=== PATIENT | male | born 1945 | race Caucasian/White ===

== ENCOUNTER 2018-10-12 10:03 | Inpatient (IN) | payer OTHER, MEDICARE, SELFPAY ==
[2018-10-12] VITALS (18 sets, daily range): BP systolic 96–133; BP diastolic 63–96; PULSE 84–123; RESP 15–28; TEMP 36.7–37.1; O2SAT 92–99; BMI 19.5
--- NOTE | 2018-10-12 10:50 | CT_ITS ---
STUDY: CT BRAIN WITHOUT CONTRAST REASON FOR EXAM: Male, 73 years old. Dizziness RADIATION DOSAGE (If Supplied By Facility): CTDIvol = ( 44.99 ) mGy, DLP = ( 796.11 ) mGycm TECHNIQUE: Transaxial CT imaging of the brain was performed without administration of intravenous contrast material. Individualized dose optimization techniques were used for this CT. COMPARISON: No relevant priors. FINDINGS: Normal soft tissue structures. Normal calvarium. Normal size ventricles and extra-axial spaces for the patient's age. Chronic small vessel disease There is no intracranial hemorrhage. There are no findings of an acute ischemic infarction. Normal visualized paranasal sinuses. CT/Brain/Head without Contrast IMPRESSION: No acute intracranial hemorrhage, mass effect or acute large territory infarcts. Electronically Signed: Palomo Shook, at 12:28 EDT Tel , Service support ,
--- NOTE | 2018-10-12 10:51 | CT_ITS ---
STUDY: CT CHEST WITHOUT CONTRAST REASON FOR EXAM: Male, 73 years old. Fall and dizziness RADIATION DOSAGE (If Supplied By Facility): CTDIvol = ( 14.44 ) mGy, DLP = ( 451.09 ) mGycm TECHNIQUE: Transaxial imaging was performed without the administration of intravenous contrast material. Individualized dose optimization techniques were used for this CT. COMPARISON: None. FINDINGS: No pneumothorax or pleural effusion. Bilateral emphysematous changes noted with scarring in the lung apices. There is traction bronchiectasis with honeycombing in the lung bases also seen which can be seen in the setting of interstitial fibrosis Coronary vascular calcifications. No pericardial effusion. Postsurgical changes at the GE junction. No evidence for mediastinal adenopathy. Small nodule in the left lower lobe measuring up to 8mm which needs further assessment with follow-up chest CT. Osseous structures demonstrate compression deformities of the T1, T5, T6, T8 and T11 levels of indeterminate age. Small punctate calcification in the right renal parenchyma partially seen CT/Chest without Contrast IMPRESSION: Bilateral emphysematous changes with a superimposed interstitial fibrosis. Left lower lobe nodule which needs further assessment with follow-up chest CT in 3 months Coronary vascular calcifications. Multiple compression fractures of the thoracic vertebrae involving T1, T5, T6, T8 and T11 levels of indeterminate age Electronically Signed: Palomo Shook, at 12:41 EDT Tel , Service support ,
--- NOTE | 2018-10-12 10:51 | EKG12_ITS ---
Test Reason : DYSRHYTHMIA Blood Pressure : / mmHG Vent. Rate : 123 BPM Atrial Rate : 326 BPM P-R Int : 000 ms QRS Dur : 096 ms QT Int : 296 ms P-R-T Axes : 000 -54 076 degrees QTc Int : 423 ms Atrial fibrillation with rapid ventricular response Left anterior fascicular block Possible Lateral infarct , age undetermined Abnormal ECG Confirmed by CARMELINA RODRIGUES, FELISA ([id number]), editor map JESÚS GARCIA ([id number]) on 10/14/2018 1:29:21 PM Referred By: Keri Barclay Confirmed By:FELISA COSME MD
--- NOTE | 2018-10-12 10:51 | CT_ITS ---
STUDY: CT CERVICAL SPINE WITHOUT CONTRAST REASON FOR EXAM: Male, 73 years old. Dizziness and fall RADIATION DOSAGE (If Supplied By Facility): CTDIvol = ( 18.32 ) mGy, DLP = ( 389.94 ) mGycm TECHNIQUE: High resolution transaxial imaging was performed without contrast material. Sagittal and coronal images were reconstructed. Individualized dose optimization techniques were used for this CT. COMPARISON: None FINDINGS: Straightening of normal cervical lordotic curvature. Atlantodental joints degenerative changes with retrodental soft tissue seen. The atlantooccipital joint degenerative changes. Disc space narrowing and C5-C6 level with multilevel neural foraminal narrowing. Mild wedging of the cervical vertebra. The dens appears intact. Occipital condyles are within normal limits. Multilevel facet arthrosis. Apical scarring and emphysematous changes seen which can be assessed with CT examination of the chest Multilevel degenerative disc disease also seen. IMPRESSION: Cervical spondylotic changes with multilevel neural foraminal narrowing. No evidence for acute cervical spine fractures. Electronically Signed: Palomo Shook, at 12:36 EDT Tel , Service support , CT/Spine Cervical without Contras
[2018-10-12] MEDS: Flecainide 150 MG Tablet 75 MG PO (11:17)
[2018-10-12] MEDS: Ondansetron 4 MG/2 ML Vial IV (11:18)
[2018-10-12] MEDS: Morphine 2 MG/ML Syringe IV ×2 (11:18→16:29)
[2018-10-12 11:29] LABS: Absolute Lymphocyte Count 1.45 X10^3/uL (0.83-4.51); Absolute Neutrophil Count 9.8 X10^3/uL (2.0-7.7); Basophil# 0.06 X10^3/uL; Basophil% 0.5 % (0-1); Eosinophil# 0.08 X10^3/uL; Eosinophils% 0.6 % (0-5); Hemoglobin 15.6 g/dL (13.0-16.5); Lymphocyte # 1.45 X10^3/ul (4.0); Lymphocyte % 11.6 % (19-41); Mean Corp Hgb Conc 33.2 g/dL (32-36); Mean Corpuscular Hgb 35.1 pg (27.0-32.0); Mean Corpuscular Volume 105.9 fL (80-94); Mean Platelet Vol. 10.5 fl (6.2-12.0); Monocyte# 1.01 X10^3/uL; Monocyte% 8.1 % (0-10); NRBC Flagged by Analyzer 0 % (0-5); Neutrophil # 9.81 X10^3/uL (2.7-7.7); Neutrophil % 78.4 % (47-70); Platelet Count 259 K/mm3 (150-450); RBC Distribution Width SD 51.6 fl (35.1-43.9); Red Blood Count 4.44 M/mm3 (4.6-6.2); White Blood Count 12.5 K/mm3 (4.4-11.0)
[2018-10-12 11:44] LABS: Anion Gap 5 (5-15); BUN 25 mg/dL (7-18); BUN/Creat Ratio 19.5 RATIO (10-20); Calcium,Total 8.5 mg/dL (8.5-10.1); Chloride 111 mmol/L (98-107); Creatinine, Serum 1.28 mg/dL (0.70-1.30); EST Glomerular Filtration Rate 59 mL/min (>60); Est Glom Filt Rate - Afr Amer 71 mL/min (>60); Estimated Creatinine Clearance 49.44 ml/min; Glucose 83 mg/dL (74-106); Potassium 5.1 mmol/L (3.5-5.1); Sodium Level 142 mmol/L (136-145)
--- NOTE | 2018-10-12 12:00 | RAD_ITS ---
STUDY: X-RAY - RIGHT SHOULDER REASON FOR EXAM: Male, 73 years old. Injury and pain TECHNIQUE: 2 view(s) of the shoulder. COMPARISON: None. FINDINGS: No evidence for shoulder dislocation seen. Degenerative changes of the acromioclavicular joint. High riding humeral head which can be seen in the setting of rotator cuff tear No consolidative process. Chronic interstitial changes in the lung parenchyma. IMPRESSION: Subtle deformity of the femoral head along the posterolateral surface noted with minimal deformity along the inferior glenoid rim possibly a Hill-Sachs deformity or Bankart lesion of indeterminate age Electronically Signed: Palomo Shook, at 12:43 EDT Tel , Service support , RAD/Shoulder min 2 Views
[2018-10-12] MEDS: Metoprolol Tartrate 5 MG/5 ML Vial IV ×2 (13:02→13:20)
[2018-10-12] MEDS: Etomidate 20 MG/10 ML Vial 10 MG IV (14:04)
--- NOTE | 2018-10-12 14:42 | ED.DCSUM_ITS ---
- ER Visit Summary Date of Service: 10/12/18 Chief Complaint: Dizziness History of Present Illness: The patient is a 73 M who states he has a history of A. fib is on Eliquis as well as flecainide. Also has a history of COPD and is a smoker. He is seen [facility]. He tells me that with his A. fib when he goes into it he usually becomes very symptomatic is generally weak feels poorly gets dizzy sometimes fall. Tells me that today he is on his way to the bathroom when his symptoms acutely started fell down. He believes he lost consciousness. He struck the right side of his head. He injured his right shoulder has pain anterior aspect of the shoulder as well as the ribs in the mid axillary line asif r the axilla. He notes a slight headache. There is a concern voiced by family that he does not appropriately take his medications. There is concerned that he is taking more flecainide than what he should. He states he has not missed any doses of his Eliquis for several months. He reports that within the past couple months he has had a change from metoprolol and lisinopril to flecainide. This was done because he was experiencing low blood pressure when he would go into atrial fibrillation. From what it sounds like the hope was that he would be maintained in a sinus rhythm that he is on flecainide but he states this is not been occurring. Physical Examination: Afebrile vital signs show a tachycardia at a rate of 133 Gen: Well-nourished well-developed Head: Normocephalic there is a small 0.5 cm laceration to the left forehead periorbital region. The wound edges are approximated and there is dried blood adhering the edges together. Eyes: Perrl EOMI ENT: TMs clear no rhinorrhea moist mucous membranes Neck: Supple no lymphadenopathy no JVD nontender CVS: Irregularly irregular tachycardic rhythm no murmurs normal S1-S2 Respiratory: No distress clear to auscultation bilaterally chest nontender Abdomen: Soft nontender nondistended normal bowel sounds no masses Back: Nontender Extremity: Patient has painful range of motion of the right shoulder. He is tender of the anterior aspect of the shoulder. There is no obvious dislocation. Neurovascular intact. Skin: Normal color no rash Neuro: alert orientated ?3 CN II-XII intact normal strength sensation Psych: Normal affect normal mood Test Results: White count 12.5. Creatinine 1.28. Troponin negative. EKG shows atrial fibrillation at a rate of 123. Shoulder films showed a probable Hill- Sachs deformity. CT the brain cervical spine the chest showed no acute findings. Emergency Department Course and Treatment: Patient had not taken his flecainide for the day. We gave him his morning dose and gave metoprolol. This is slowed his heart rate down to around 100. He received morphine and Zofran for the pain in his shoulder. I suspect there is a chance that he did dislocate the shoulder but reduced on its own. This would explain why he is so sore and the lesion seen on shoulder films. He will be placed in a sling. Patient continues to feel poorly when standing. We talked about the possibility of a cardioversion. 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 He would like to try to be cardioverted to get back to sinus rhythm so he can go home. Patient provided signed informed consent. He received procedural s edation dose of etomidate. A synchronized 200 J shock was performed which resulted in a brief episode of sinus rhythm that transformed to A. fib with RVR. We attempted a second time with similar results. He was allowed to recover without any adverse events. At this point patient continues to not feel good when he stands and is worried about passing out again. Our plan will be admission. Impression: 1. Paroxysmal atrial fibrillation with RVR 2. Forehead laceration 0.5 cm without repair 2. Right shoulder sprain 3. Procedural sedation 4. Failed cardioversion This note was generated with [employer] dictation software. It may contain incorrect words, spelling, and punctuation that were not noted in review of the chart prior to signing ED Disposition - Plan for ED Patient: [facility] [[facility] Provider] -
--- NOTE | 2018-10-12 16:04 | PCM.HP.STD ---
Problem List (1) GERD (gastroesophageal reflux disease) Status: Chronic (2) PAF (paroxysmal atrial fibrillation) Status: Chronic (3) Chronic back pain Status: Chronic (4) Depression with anxiety Status: Chronic (5) COPD (chronic obstructive pulmonary disease) Status: Chronic (6) Tobacco dependence Status: Chronic History of Present Illness Date of Admission: 10/12/18 Chief Complaint: Dizziness with fall. The patient is a 73 year old M who presents the emergency room due to dizziness resulting in fall at home. Patient has a history of paroxysmal atrial fibrillation and reports he becomes symptomatic with dizziness, shortness of breath when he is in atrial fibrillation. Today after taking a shower he was in the bathroom and reach for the door handle when he fell and hit the right side of his head on an iron and injured his right shoulder as well. He does not believe he lost consciousness. He initially did not want his to call the squad however his right shoulder was hurting him and he was unable to help himself up. Patient follows with the [facility] and [facility]ology at [facility] recently discontinued his metoprolol and lisinopril and switched him to flecainide. He reports his flecainide was recently increased as well. He denies chest pain. Patient reports he has been taking his Eliquis faithfully. Cardioversion was attempted x2 in ER and was not successful. Patient has followed with Dr. Blanton in the past however switched to [facility] due to insurance coverage. He has a past medical history of PAF, GERD, chronic back pain, COPD, anxiety, depression and tobacco dependence. Past Medical History Past Medical History (Chronic Problems): Chronic Problems GERD (gastroesophageal reflux disease) (Chronic) PAF (paroxysmal atrial fibrillation) (Chronic) Chronic back pain (Chronic) Depression with anxiety (Chronic) COPD (chronic obstructive pulmonary disease) (Chronic) Tobacco dependence (Chronic) Allergies varenicline tartrate [From Chantix] Allergy (Verified 10/12/18 10:05) Unknown Home Medications: Ambulatory Orders Medication Instructions Recorded Apixaban [Eliquis] 5 mg PO BID 06/03/15 Cyclobenzaprine HCl 10 mg PO TID PRN PRN 06/03/15 Fluticasone/Vilanterol [Breo 1 each [facility] UD 06/03/15 Ellipta 200-25 Mcg INH] Ipratropium/Albuterol Respimat 1 puff INHALATION 4X/DAY 06/03/15 [Combivent Respimat Inhal [place]] Mometasone Furoate [Nasonex] 2 spray NASAL DAILY 06/03/15 Oxycodone HCl/Acetaminophen 1 tab PO PRN PRN 06/03/15 [Percocet 10-325 mg Tablet] Promethazine HCl/Codeine 5 ml PO UD 06/03/15 [Prometh-Codein 6.25-10 mg/5 ml] Ranitidine [Zantac] 150 mg PO DAILY 06/03/15 buPROPion XL [Wellbutrin Xl] 300 mg PO DAILY 06/03/15 Surgical History: - - Tonsillectomy, vagotomy. Psychiatric History: Anxiety, Depression Lives: Spouse/ Significant Other Smoking Status: Current every day smoker Tobacco Use: Cigarettes - Half pack per day Alcohol: None Drugs: None - *Family History Maternal History Items: Hypertension, - - Polio Paternal History Items: - - Father passed at age 47 due to [facility]. Review of Systems Constitutional: Denies: Chills, Fever, Weight Change HEENT: Denies: Head Aches, Sinus Congestion, Sinus Drainage Cardiovascular: Reports: Light Headedness, - - Pre-syncope. Denies: Chest Pain, Palpitations Respiratory: Reports: Shortness of breath upon exertion. Denies: Cough, Shortness of breath at rest, Sputum production Gastrointestinal: Denies: Abdominal Pain, Nausea, Vomiting Genitourinary: Denies: Dysuria Musculoskeletal: Reports: - - Chronic back pain, acute right shoulder pain. Skin: Reports: - - Right forehead laceration Neurological: Denies: Numbness, Tingling, Focal weakness Psychiatric: Reports: Anxiety, Depression. Denies: Homicidal Ideations, Suicidal Ideations Hematologic/ Lymphatic: Denies: Easy Bruising, Easy Bleeding VTE Information - Inpt Only VTE Present on Admission: No VTE Mechan Device Prophylaxis: None VTE Pharm Prophylaxis ordered?: Yes - Physical Exam General: Alert, Oriented x3, Cooperative HEENT: Atraumatic, PERRLA, EOMI, Normocephalic Neck: Supple, No JVD, Negative Carotid Bruits Lungs: Clear to auscultation, Normal air movement Cardiovascular: - - Atrial fibrillation, tachycardic Abdomen: Bowel Sounds Present, Soft, Non Tender, Non-Distended Extremities: No clubbing, No cyanosis, No edema, Capillary Refill Less than 3 Seconds Skin: - - Right forehead laceration, intact with dried blood present. Musculoskeletal: Tenderness - Right shoulder Neurological: Cranial nerves II-XII grossly intact, Neuro grossly intact Psych/Mental Status: Normal Affect, Appropriate Vital Signs Temp Pulse Resp BP Pulse Ox 98.7 F 96 22 H 112/88 H 92 10/12/18 10:05 10/12/18 15:11 10/12/18 15:11 10/12/18 15:11 10/12/18 15:11 Oxygen Flow Rate (L/min) [1] 2 Oxygen Flow Rate (L/min) [2] 4 Oxygen Flow Rate (L/min) 2 Oxygen Delivery Method [1] Nasal Cannula Oxygen Delivery Method [2] Nasal Cannula Oxygen Delivery Method Room Air Weight: 147 lb 11.355 oz Body Mass Index (BMI) 19.5 Laboratory Tests Past 24 Hrs 10/12/18 10/12/18 11:20 11:20 WBC 12.5 H RBC 4.44 L Hgb 15.6 Hct 47.0 MCV 105.9 H MCH 35.1 H MCHC 33.2 RDW Std Deviation 51.6 H RDW Coeff of Elizabeth 13.0 Plt Count 259 MPV 10.5 Immature Gran % (Auto) 0.800 Neut % (Auto) 78.4 H Lymph % (Auto) 11.6 L [place] % (Auto) 8.1 Eos % (Auto) 0.6 Baso % (Auto) 0.5 Absolute Neuts (auto) 9.8 H Absolute Lymphs (auto) 1.45 Nucleated RBC % 0 Sodium 142 Potassium 5.1 Chloride 111 H Carbon Dioxide 26.0 Anion Gap 5 BUN 25 H Creatinine 1.28 Estim Creat Clear Calc 49.44 Est GFR (MDRD) Af Amer 71 Est GFR (MDRD) Non-Af 59 L BUN/Creatinine Ratio 19.5 Glucose 83 Calcium 8.5 Troponin I < 0.015 Assessment/Plan 1. Atrial fibrillation with RVR, history of paroxysmal atrial fibrillation-failed cardioversion x2. Continue home Eliquis regimen. Patient reports his flecainide regimen was recently increased. He was prior on lisinopril and metoprolol however discontinued given low blood pressure. Consult cardiology in a.m. Patient has seen Dr. Blanton in the past. PRN IV metoprolol. 2. Presyncope with fall secondary to #1-resulting in right shoulder sprain and right forehead laceration. Laceration intact and did not require suturing. Right arm sling, apply ice. PRN pain regimen and outpatient follow-up with Ortho. 3. Chronic COPD- no acute exacerbation. Scheduled DuoNeb. 4. GERD-continue Zantac regimen. 5. Anxiety/depression-continue home Wellbutrin regimen. 6. Chronic back pain-outpatient follow-up with Ortho. Patient states his pain has worsened recently. Continue PRN pain regimen. PT/OT. 7. Tobacco dependence- encouraged cessation. DVT prophylaxis-Eliquaisha This patient was seen by VALE Mckay under the supervision of Dr. Lsia.
--- NOTE | 2018-10-12 16:22 | ECHOCS_ITS ---
Reason For Study: AFIB Procedure This was a 2D Doppler, Color Flow transthoracic echocardiogram. The study was technically difficult. Contrast injection was performed. Pt has fractured arm and vertebrae- was positioned supine for exam. Exam performed portable in patient room. Left Ventricle Normal LV size. The estimated ejection fraction is 45 %. Mild global left ventricular systolic dysfunction. There is mild global hypokinesis of the left ventricle. Right Ventricle Normal RV size. Normal systolic function. Atria Normal left atrium. Normal right atrium. Mitral Valve Normal mitral valve. Tricuspid Valve Normal tricuspid valve. Aortic Valve The aortic valve is not well visualized. Pulmonic Valve Normal pulmonic valve. Great Vessels Normal aortic root. The pulmonary artery is normal size. Normal inferior vena cava. Pericardium/Pleural No pericardial effusion. Medication Diluted definity 6ml given slow IV push to enhance endocardial definition. MMode/2D Measurements & Calculations LVIDd: 4.9 cm IVSd: 0.69 cm Ao root diam: 3.4 cm LVIDs: 4.0 cm LVPWd: 0.72 cm FS: 18.5 % LAV(MOD-bp): 24.3 ml LA A4 area: 11.7 cm2 LA dimension(2D): 3.8 cm LAV(MOD-bp) Indexed: 12.9 ml/m2 LAV(MOD-sp2): 24.0 ml LAV(MOD-sp4): 22.5 ml RA A4 area: 13.1 cm2 Doppler Measurements & Calculations Ao V2 max: 63.7 cm/sec LV V1 max: 56.2 cm/sec PA V2 max: 53.7 cm/sec Ao max P.6 mmHg LV V1 max P.3 mmHg TR max dora: 192.6 cm/sec TR max P.8 mmHg Interpretation Summary Normal LV size. The estimated ejection fraction is 45 %. Mild global left ventricular systolic dysfunction. Contrast injection was performed. Compared to prior study, there is no significant change. Ordering Physician: Keri Barclay Referring Physician: MARKO BAJWA Performed By: Isatu Alvarez, CHRISTIANO, RVT
[2018-10-12 17:22] LABS: Magnesium 2.4 mg/dL (1.6-2.6); Thyroid Stim Hormone (TSH) 1.86 uIU/mL (0.358-3.74)
[2018-10-12] MEDS: oxyCODONE 5 MG Tablet PO (21:35)
[2018-10-12] MEDS: APIXABAN 5 MG TABLET PO (21:36)
[2018-10-12] MEDS: Flecainide 100 MG Tablet 50 MG PO (21:36)
[2018-10-13] VITALS (15 sets, daily range): BP systolic 80–123; BP diastolic 53–71; PULSE 72–96; RESP 12–18; TEMP 36.6–36.9; O2SAT 94–99
[2018-10-13] MEDS: Morphine 2 MG/ML Syringe IV (01:22)
[2018-10-13] MEDS: Acetaminophen 325 MG Tablet 650 MG PO (01:28)
[2018-10-13] MEDS: oxyCODONE 5 MG Tablet PO ×2 (04:15→08:29)
[2018-10-13] MEDS: Budesonide Respules 0.5 MG/2 ML AMPUL.NEB. INHALATION (06:49)
--- NOTE | 2018-10-13 07:30 | CON.PCM_ITS ---
Reason for Consult Date of Consultation: 10/13/18 Reason for Consultation: Atrial fibrillation History of Present Illness: The patient is a 73 year old M with a known history of A. fib is on Eliquis as well as flecainide. Also has a history of COPD and is a smoker. [facility] He tells me that with his A. fib when he goes into it he usually becomes very symptomatic is generally weak feels poorly gets dizzy sometimes fall. He says that yesterday he was on his way to the bathroom when his symptoms acutely started fell down. He believes he lost consciousness. He struck the right side of his head. He injured his right shoulder has pain anterior aspect of the shoulder as well as the ribs in the mid axillary line near the axilla. He notes a slight headache. There is a concern voiced by family that he does not appropriately take his medications. There is concerned that he is taking more flecainide than what he should. He states he has not missed any doses of his Eliquis for several months. He reports that within the past couple months he has had a change from metoprolol and lisinopril to flecainide. This was done because he was experiencing low blood pressure when he would go into atrial fibrillation. He was seen in the emergency room he was noted to be in atrial for ablation with rapid ventricular response rate he was given metoprolol and flecainide and had 2 attempts at DC cardioversion which were unsuccessful. He was admitted to the telemetry care unit. Past medical history is significant for coronary artery disease status post cardiac catheterization in 2016 which demonstrated an LAD with 60 to 70% stenosis, and nondominant left circumflex artery with 80% stenosis, right coronary artery with mild diffuse disease. He subsequently underwent stress testing after that to determine the significance of the lesions and at 7 metabolic equivalents there was no evidence of ischemia. He was not seen in follow-up by me but was being followed in the [facility] system. At this particular time he appears to be free of symptoms. He is denied any chest pain or paroxysmal nocturnal dyspnea or pedal edema. Past Medical History Allergies/Adverse Reactions: Allergies varenicline tartrate [From Chantix] Allergy (Verified 10/12/18 10:05) Unknown Home Medications: Ambulatory Orders Medication Instructions Recorded Apixaban [Eliquis] 5 mg PO BID 06/03/15 Cyclobenzaprine HCl 10 mg PO TID PRN PRN 06/03/15 Ipratropium/Albuterol Respimat 1 puff INHALATION 4X/DAY 06/03/15 [Combivent Respimat Inhal [place]] Ranitidine [Zantac] 150 mg PO DAILY 06/03/15 buPROPion XL [Wellbutrin Xl] 300 mg PO DAILY 06/03/15 Acetaminophen [Non-Aspirin Pain 1,000 mg PO Q6H PRN PRN 10/12/18 Relief] Flecainide [Tambocor] 75 mg PO BID 10/12/18 Fluticasone 0.05% [Flonase Nasal 2 spray NASAL DAILY 10/12/18 [place]] Past Medical History (Chronic Problems): Chronic Problems GERD (gastroesophageal reflux disease) (Chronic) PAF (paroxysmal atrial fibrillation) (Chronic) Chronic back pain (Chronic) Depression with anxiety (Chronic) COPD (chronic obstructive pulmonary disease) (Chronic) Tobacco dependence (Chronic) Surgical History: - - Tonsillectomy, vagotomy. Psychiatric History: Anxiety, Depression - *Family History Maternal History Items: Hypertension, - - Polio Paternal History Items: - - Father passed at age 47 due to [place]. Lives: Spouse/ Significant Other Smoking Status: Current every day smoker Tobacco Use: Cigarettes Alcohol: None Drugs: None Review of Systems - Review of Systems General: Denies: Fever, Night Sweats, Fatigue HEENT: Denies: Vision Change Cardiovascular: Reports: Palpitations, Syncope. Denies: Chest Discomfort, Shortness of Breath, Orthopnea, PND, Peripheral Edema, Lightheadedness, Dizziness, Near Syncope Respiratory: Denies: Cough, Sputum Production, Hemoptysis Gastrointestinal: Denies: Hematemesis, Hematochezia, Melena Genitourinary: Denies: Dysuria, Hematuria Muscoloskeletal: Denies: Myalgias Skin: Denies: Rash Neurological: Reports: Dizziness Psychiatric: Denies: Anxiety Endocrine: Denies: Unexplained Weight Loss Subjectve: Pleasant gentleman in no apparent distress at this time Objective: Vital Signs Temp Pulse Resp BP Pulse Ox 98.1 F 91 18 123/71 H 95 10/13/18 04:15 10/13/18 04:15 10/13/18 04:15 10/13/18 04:15 10/13/18 04:15 Oxygen Flow Rate (L/min) [1] 2 Oxygen Flow Rate (L/min) [2] 4 Oxygen Flow Rate (L/min) 2 Oxygen Delivery Method [1] Nasal Cannula Oxygen Delivery Method [2] Nasal Cannula Oxygen Delivery Method Nasal Cannula Weight: 147 lb 11.355 oz Body Mass Index (BMI) 19.5 Intake and Output for Last 24 Hours 10/11/18 10/12/18 10/13/18 23:59 23:59 23:59 Intake Total 717 / 717 Output Total 450 / 450 Balance 267 / 267 General: Awake, Alert, Oriented x 3 HEENT: PERRL, EOMI, Sclera Non Icteric Neck: Supple, Good ROM, No Lymph Node Enlargement Lungs: Clear to auscultation Cardiovascular: Irregular Rhythm, Normal S1, Normal S2, No Murmurs, No Rubs, No Gallops Vascular: No Carotid Bruits, Normal Femoral Pulses, Normal Radial Pulses, Normal Dorsalis Pedal Pulse, Normal Posterior Tibial Pulses Abdomen: Bowel Sounds Present, Soft, Non Tender, No HSM, No Organomegaly Extremities: No Cyanosis, No Clubbing, No edema Musculoskeletal: No Erythema Skin: No Rashes Neurological: No Focal Motor or Sensory Deficit Psych/Mental Status: Appropriate 10/12/18 11:20: WBC 12.5 H, RBC 4.44 L, Hgb 15.6, Hct 47.0, MCV 105.9 H, MCH 35.1 H, MCHC 33.2, Plt Count 259, MPV 10.5, Immature Gran % (Auto) 0.800, Neut % (Auto) 78.4 H, Lymph % (Auto) 11.6 L, [place] % (Auto) 8.1, Eos % (Auto) 0.6, Baso % (Auto) 0.5, Absolute Neuts (auto) 9.8 H, Nucleated RBC % 0 10/12/18 11:20: Sodium 142, Potassium 5.1, Chloride 111 H, Carbon Dioxide 26.0, Anion Gap 5, BUN 25 H, Creatinine 1.28, Est GFR (MDRD) Af Amer 71, Est GFR (MDRD) Non-Af 59 L, BUN/Creatinine Ratio 19.5, Glucose 83, Calcium 8.5, Troponin I < 0.015 10/12/18 11:20: Magnesium 2.4 10/12/18 17:55: Troponin I < 0.015 10/12/18 20:39: Troponin I < 0.015 Rhythm: EKG: Atrial fibrillation with rapid ventricular response rate rate of 123 bpm Assessment/Plan 1. Atrial fibrillation with rapid ventricular response rate * Patient presented with atrial for ablation with rapid ventricular response rate and a syncopal episode. He had been on flecainide prescribed by the [facility]. He does have coronary artery disease and thus this medication is contraindicated. I would recommend that we discontinue the above and continue him on the anticoagulation. * Resume metoprolol 50 mg twice a day * Consider starting amiodarone 200 mg twice a day * Echocardiogram to assess his left ventricular function * At this time I would not recommend any DC cardioversion. * 2. Coronary artery disease * Does have previous known coronary artery disease but at this time is asymptomatic with regard to chest pain * We will continue to observe his cardiac enzymes which have been negative thus far. * We may consider outpatient stress testing. * 3. Hypertension * Blood pressure appears to be under good control at this particular time. No major changes will be made. * * Will also continue with risk factor modification. * 4. Syncope * Etiology unclear but may have been secondary to the atrial for ablation with rapid ventricular response rate of a pause suggesting a tachybradycardia syndrome. We will continue to observe his rhythm under telemetry monitoring. He may need outpatient Holter monitoring or event monitoring. * * Thank you for allowing me to participate in the care of your patient. Please don't hesitate to call if any issues arise
[2018-10-13] MEDS: Amiodarone 200 MG Tablet PO ×2 (08:30→21:02)
[2018-10-13] MEDS: APIXABAN 5 MG TABLET PO ×2 (08:30→21:02)
[2018-10-13] MEDS: buPROPion (XL) 300 MG TABLET.XL PO (08:30)
[2018-10-13] MEDS: Famotidine 20 MG Tablet PO (08:30)
--- NOTE | 2018-10-13 09:30 | CASEMGMT ---
[facility] Per Ryan PHILLIPS[facility] not have [facility] available at that time. This RN CM [facility] once [facility] received and assigned. Vik BERRY CM
[2018-10-13] MEDS: Metoprolol Tartrate 50 MG Tablet PO ×2 (09:47→21:02)
--- NOTE | 2018-10-13 10:22 | PN_ITS ---
<Keri Barclay - Last Filed: 10/13/18 10:38> Patient Problems: Active and Suspected Problems Atrial fibrillation with RVR (Acute) Subjective: Patient seen and examined. Complains of severe right shoulder pain. Denies further dizziness, lightheadedness or presyncope. - Physical Exam General: Alert, Oriented x3, Cooperative HEENT: Atraumatic, PERRLA, EOMI, Normocephalic Neck: Supple, No JVD, Negative Carotid Bruits Lungs: Clear to auscultation, Normal air movement Cardiovascular: - - Atrial fibrillation, rate controlled Abdomen: Bowel Sounds Present, Soft, Non Tender Extremities: No clubbing, No cyanosis, No edema, Capillary Refill Less than 3 Seconds Skin: No rashes, No breakdown, - - Right forehead laceration Musculoskeletal: Tenderness - Right shoulder Neurological: Cranial nerves II-XII grossly intact, Neuro grossly intact Psych/Mental Status: Normal Affect, Appropriate Vital Signs Temp Pulse Resp BP Pulse Ox 97.9 F 89 16 93/58 L 95 10/13/18 09:35 10/13/18 09:47 10/13/18 09:35 10/13/18 09:35 10/13/18 09:35 Oxygen Flow Rate (L/min) [1] 2 Oxygen Flow Rate (L/min) [2] 4 Oxygen Flow Rate (L/min) 2 Oxygen Delivery Method [1] Nasal Cannula Oxygen Delivery Method [2] Nasal Cannula Oxygen Delivery Method Nasal Cannula Weight: 147 lb 11.355 oz Body Mass Index (BMI) 19.5 Intake and Output for Last 24 Hours 10/11/18 10/12/18 10/13/18 23:59 23:59 23:59 Intake Total 717 / 717 Output Total 450 / 450 Balance 267 / 267 Laboratory Tests Past 24 Hrs 10/12/18 10/12/18 10/12/18 11:20 11:20 11:20 WBC 12.5 H RBC 4.44 L Hgb 15.6 Hct 47.0 MCV 105.9 H MCH 35.1 H MCHC 33.2 RDW Std Deviation 51.6 H RDW Coeff of Elizabeth 13.0 Plt Count 259 MPV 10.5 Immature Gran % (Auto) 0.800 Neut % (Auto) 78.4 H Lymph % (Auto) 11.6 L [place] % (Auto) 8.1 Eos % (Auto) 0.6 Baso % (Auto) 0.5 Absolute Neuts (auto) 9.8 H Absolute Lymphs (auto) 1.45 Nucleated RBC % 0 Sodium 142 Potassium 5.1 Chloride 111 H Carbon Dioxide 26.0 Anion Gap 5 BUN 25 H Creatinine 1.28 Estim Creat Clear Calc 49.44 Est GFR (MDRD) Af Amer 71 Est GFR (MDRD) Non-Af 59 L BUN/Creatinine Ratio 19.5 Glucose 83 Calcium 8.5 Magnesium 2.4 Troponin I < 0.015 TSH 1.86 10/12/18 10/12/18 17:55 20:39 WBC RBC Hgb Hct MCV MCH MCHC RDW Std Deviation RDW Coeff of Elizabeth Plt Count MPV Immature Gran % (Auto) Neut % (Auto) Lymph % (Auto) [place] % (Auto) Eos % (Auto) Baso % (Auto) Absolute Neuts (auto) Absolute Lymphs (auto) Nucleated RBC % Sodium Potassium Chloride Carbon Dioxide Anion Gap BUN Creatinine Estim Creat Clear Calc Est GFR (MDRD) Af Amer Est GFR (MDRD) Non-Af BUN/Creatinine Ratio Glucose Calcium Magnesium Troponin I < 0.015 < 0.015 TSH Medical Necessity - Tobacco Use Smoking Status: Current every day smoker Tobacco Use: Cigarettes Assessment/Plan All Active Problems Atrial fibrillation with RVR (Acute) 1. Atrial fibrillation with RVR, history of paroxysmal atrial fibrillation- failed cardioversion x2. Continue home Eliquis regimen. Patient reports his flecainide regimen was recently increased. He was prior on lisinopril and metoprolol however discontinued given low blood pressure. Dr. Blanton consulted. Flecainide discontinued. Initiated on amiodarone 200 mg twice daily and metoprolol 50 mg twice daily. Continue to monitor given history of low blood pressure on metoprolol regimen. Echocardiogram pending. 2. Presyncope with fall secondary to #1-resulting in right shoulder sprain and right forehead laceration. Laceration intact and did not require suturing. Right arm sling, apply ice. PRN pain regimen and outpatient follow-up with Ortho. Added scheduled Tylenol 1000 mg every 8 hours. IV Toradol every 8hr x3 doses. 3. Chronic COPD- no acute exacerbation. Scheduled DuoNeb. 4. GERD-continue Zantac regimen. 5. Anxiety/depression-continue home Wellbutrin regimen. 6. Chronic back pain-outpatient follow-up with Ortho. Patient states his pain has worsened recently. Continue PRN pain regimen. PT/OT. CT of chest with multiple compression fractures of indeterminate age. Check vitamin D, 25- hydroxy. 7. Tobacco dependence- encouraged cessation. DVT prophylaxis-Eliquis This patient was seen by VALE Mckay under the supervision of Dr. Hays. <Tyler Hays - Last Filed: 10/13/18 14:48> - Physical Exam General: Alert, Cooperative HEENT: Atraumatic, Normocephalic Oral: Moist Mucosa, No Gingival or Mucosal Lesions/ Ulcerations Neck: No Nodes, Thyroid Normal Size and Texture Lungs: Clear to auscultation, Normal air movement, No rhonchi, No wheeze Cardiovascular: Regular rate, Regular Rhythm, Normal S1, Normal S2, - Abdomen: Bowel Sounds Present, Soft, Non Tender, Non-Distended Extremities: No edema, No Calf Tenderness Skin: No rashes, No breakdown Musculoskeletal: Tenderness - Right shoulder. Range of passive motion but unable to AB duct his right arm. No glenohumeral joint effusion. Psych/Mental Status: Normal Affect, Appropriate Vital Signs Temp Pulse Resp BP Pulse Ox 36.6 C 89 12 96/69 96 10/13/18 13:41 10/13/18 13:41 10/13/18 13:41 10/13/18 13:41 10/13/18 13:41 Oxygen Flow Rate (L/min) [1] 2 Oxygen Flow Rate (L/min) [2] 4 Oxygen Flow Rate (L/min) 2 Oxygen Delivery Method [1] Nasal Cannula Oxygen Delivery Method [2] Nasal Cannula Oxygen Delivery Method Nasal Cannula Weight: 67 kg Body Mass Index (BMI) 19.5 Intake and Output for Last 24 Hours 10/11/18 10/12/18 10/13/18 23:59 23:59 23:59 Intake Total 957 / 957 Output Total 450 / 450 Balance 507 / 507 Laboratory Tests Past 24 Hrs 10/12/18 10/12/18 10/12/18 11:20 17:55 20:39 Magnesium 2.4 Troponin I < 0.015 < 0.015 Vitamin D 25-Hydroxy TSH 1.86 10/13/18 11:12 Magnesium Troponin I Vitamin D 25-Hydroxy 9.7 L TSH Assessment/Plan Patient seen and examined independently. Data reviewed. I agree with the above note by the nurse practitioner. 1. Atrial fibrillation with RVR * Improved at this time. * Flecainide discontinued and currently on amiodarone and metoprolol. * Follow-up echocardiogram * Cardiology input appreciated * Continue apixaban 2. Near syncope * Supportive management 3. Right shoulder pain * Likely due to strain from his fall. No obvious dislocation at this time * Follow-up with orthopedics as outpatient * I suspect probably at least partial rotator cuff tear 4. Vitamin D deficiency * 25 hydroxy vitamin D level very low at 9.7. We will initiate ergocalciferol 50,000 units. Patient continue with ergocalciferol weekly for 8 doses and then cholecalciferol 2000 units daily thereafter. In approximate 3 months, check a 25-hydroxy vitamin D level with a goal level being around 50. 5. Vertebral compression fractures * Patient has 5, just within his thoracic vertebrae, at T1, T5, T6, T8 and T11. Patient has pain but no radicular signs. Would not pursue any additional evaluation unless his symptoms become worse or signs that may warrant kyphoplasty. * I suspect that these are new as patient states that he has not had any recent falls though unable to be determined at this time. Greater than 35 minutes of which greater than 50% of the time was counseling patient about vertebral compression fractures and his age fibrillation. Code Visit Inpatient E&M: 58871 Subs Hosp L3
--- NOTE | 2018-10-13 10:55 | CASEMGMT ---
Addendum entered by Scotty Grant 10/13/18 13:06: Declination for Transfer to [place] form faxed to [facility], transfer center. Maria Elena DENNIS Original Note: RN CM Assessment Presentation: Atrial fibrillation with RVR. Presyncope with fall, suspected R shoulder dislocatio. R arm in sling. Intro role of CM and purpose of RN CM assessment. Pt is awake, alert and able to participate in assessment. Demographics, PCP and Pharmacy verified. Pt states he plans to return home and his is able to assist him. Pt states over past year they have not gone out much or done much because of his passing out. PCP: Dr. Turner Cummings, [facility]; Dr. Pappas, [address] @ [facility]. Pt has appointment next Saturday Specialists: Dr. Blanton Preferred Pharmacy: [facility] Insurance: [facility] Medicare; [place] benefits. Pt does not wish to transfer to [place]. Declination for Transfer to [place] signed by pt and he understands [facility] will be billed for hospital stay. Prescription Benefit: yes. Pt states he gets most prescriptions through [place]. LNOK: Diana Wu, Living Arrangements: Lives independently in two story home. 1/2 bath on main floor, full bath on second floor with bedrooms. Pt states he is able to navigate stairs, but with more difficulty than past. is able to assist with care needs. Transportation: pt drives, and also can assist with driving. DME: cane. Pt states he did not use DME prior HHC: none. Pt declining Home Health at this time. States his can assist. Patient DC goals: Home with DC PLAN: Anticipate Home with family support. Maria Elena DENNIS
[2018-10-13 11:59] LABS: Vitamin D,25 Hydroxy 9.7 ng/mL (29.95-100.01)
[2018-10-13] MEDS: 0.9% NaCl Peripheral Flush Adult/Peds IV ×2 (13:37→21:01)
[2018-10-13] MEDS: Ketorolac 15 MG/ML Vial IV ×2 (13:37→21:03)
[2018-10-13] MEDS: Acetaminophen 500 MG Tablet 1000 MG PO ×2 (13:38→21:02)
[2018-10-14] VITALS (9 sets, daily range): BP systolic 91–107; BP diastolic 52–70; PULSE 66–89; RESP 14–16; TEMP 36.3–36.4; O2SAT 82–97
[2018-10-14] MEDS: Acetaminophen 500 MG Tablet 1000 MG PO ×2 (05:47→13:14)
[2018-10-14] MEDS: Ketorolac 15 MG/ML Vial IV (05:48)
[2018-10-14] MEDS: 0.9% NaCl Peripheral Flush Adult/Peds IV (05:48)
[2018-10-14] MEDS: Budesonide Respules 0.5 MG/2 ML AMPUL.NEB. INHALATION (07:19)
--- NOTE | 2018-10-14 07:43 | PN.CARD_ITS ---
Subjectve: Patient seen and evaluated. Appears to be doing quite well. Denies any chest pain or palpitations. Objective: Vital Signs Temp Pulse Resp BP Pulse Ox 97.4 F L 71 16 91/52 L 97 10/14/18 02:25 10/14/18 07:00 10/14/18 02:25 10/14/18 02:25 10/14/18 02:25 Oxygen Flow Rate (L/min) [1] 2 Oxygen Flow Rate (L/min) [2] 4 Oxygen Flow Rate (L/min) 2 Oxygen Delivery Method [1] Nasal Cannula Oxygen Delivery Method [2] Nasal Cannula Oxygen Delivery Method Nasal Cannula Weight: 147 lb 11.355 oz Body Mass Index (BMI) 19.5 Intake and Output for Last 24 Hours 10/12/18 10/13/18 10/14/18 23:59 23:59 23:59 Intake Total 1317 / 1317 120 / 120 Output Total 450 / 450 Balance 867 / 867 120 / 120 General: Awake, Alert, Oriented x 3 HEENT: PERRL, EOMI, Sclera Non Icteric Neck: Supple, Good ROM, No Lymph Node Enlargement Lungs: Clear to auscultation Cardiovascular: Irregular Rhythm, Normal S1, Normal S2, No Murmurs, No Rubs, No Gallops Vascular: No Carotid Bruits, Normal Femoral Pulses, Normal Radial Pulses, Normal Dorsalis Pedal Pulse, Normal Posterior Tibial Pulses Abdomen: Bowel Sounds Present, Soft, Non Tender, No HSM, No Organomegaly Extremities: No Cyanosis, No Clubbing, No edema Musculoskeletal: No Erythema Skin: No Rashes Lymphatic: No Lymph Node Enlargement Neurological: No Focal Motor or Sensory Deficit Psych/Mental Status: Appropriate Rhythm: EKG: ECHO: Stress Test: Cardiac Cath: PCI: CT Surgery: Holter monitor: EPS: PPM: CXR: Chest CT Scan: Medical Necessity - Tobacco Use Smoking Status: Current every day smoker Tobacco Use: Cigarettes Assessment/Plan 1. Atrial fibrillation with rapid ventricular response rate * Patient presented with atrial for ablation with rapid ventricular response rate and a syncopal episode. He had been on flecainide prescribed by the [facility]. He does have coronary artery disease and thus this medication is contraindicated. * Flecainide has been discontinued and metoprolol started and will reduce the dose to 25 mg twice a day * Consider starting amiodarone 200 mg twice a day * Echocardiogram to assess his left ventricular function demonstrated mild global left ventricular systolic dysfunction estimated EF of 45%. 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 * At this time I would not recommend any DC cardioversion. * 2. Coronary artery disease * Does have previous known coronary artery disease but at this time is asymptomatic with regard to chest pain * We will continue to observe his cardiac enzymes which have been negative thus far. * We may consider outpatient stress testing. * 3. Hypertension * Blood pressure appears to be under good control at this particular time. No major changes will be made. * Metoprolol 25 mg twice a day * Will also continue with risk factor modification. * 4. Syncope * Etiology unclear but may have been secondary to the atrial for ablation with rapid ventricular response rate of a pause suggesting a tachybradycardia syndrome. He may need outpatient 48-hour Holter monitoring sylvia to read. * He can be discharged later today. * Thank you for allowing me to participate in the care of your patient. Please don't hesitate to call if any issues arise
[2018-10-14] MEDS: Amiodarone 200 MG Tablet PO (08:19)
[2018-10-14] MEDS: oxyCODONE 5 MG Tablet PO (08:19)
[2018-10-14] MEDS: APIXABAN 5 MG TABLET PO (08:20)
[2018-10-14] MEDS: Famotidine 20 MG Tablet PO (08:20)
[2018-10-14] MEDS: buPROPion (XL) 300 MG TABLET.XL PO (08:20)
[2018-10-14] MEDS: Metoprolol Tartrate 25 MG Tablet PO (08:37)
--- NOTE | 2018-10-14 11:34 | DCINST_ITS ---
- Discharge Diagnoses Current Active Problems: Current Active and Chronic Problems Atrial fibrillation with RVR (Acute) GERD (gastroesophageal reflux disease) (Chronic) PAF (paroxysmal atrial fibrillation) (Chronic) Chronic back pain (Chronic) Depression with anxiety (Chronic) COPD (chronic obstructive pulmonary disease) (Chronic) Tobacco dependence (Chronic) You will use the following diet at home:: Cardiac Discharge Activity: Return to Normal Activity Call your doctor if you observe: Shortness of breath, Dizziness, Fainting spells, Chest pain Additional Instructions: Continue supplement oxygen to maintain O2 at or above 90%. Recommend checking blood pressure twice daily at home, morning and night and documenting findings to report to cardiology follow-up in 1 to 2 weeks. Your vitamin D level was very low and you were started on vitamin D supplementation which you will take weekly for 7 more weeks. In 3 months recommend repeat vitamin D level with primary care physician. Allergies/Adverse Reactions: Allergies varenicline tartrate [From Chantix] Allergy (Verified 10/12/18 10:05) Unknown Medications to take at Discharge Apixaban [Eliquis] 5 mg PO BID 06/03/15 Cyclobenzaprine HCl 10 mg PO TID PRN PRN 06/03/15 Ipratropium/Albuterol Respimat [Combivent Respimat Inhal [place]] 1 puff INHALATION 4X/DAY 06/03/15 Ranitidine [Zantac] 150 mg PO DAILY 06/03/15 buPROPion XL [Wellbutrin Xl] 300 mg PO DAILY 06/03/15 Fluticasone 0.05% [Flonase Nasal [place]] 2 spray NASAL DAILY 10/12/18 Acetaminophen [Tylenol] 1,000 mg PO Q8 tab 10/14/18 Amiodarone HCl [Cordarone] 200 mg PO BID #60 tab 10/14/18 Ergocalciferol [Vitamin D] 50,000 unit PO Q7D #7 cap 10/14/18 Metoprolol Tartrate [Lopressor (beta zeferino)] 25 mg PO BID #60 tab 10/14/18 Oxycodone [Oxyir] 5 mg PO Q6H PRN PRN 3 Days #18 tablet 10/14/18 The following prescriptions were given: Amiodarone HCl [Cordarone] 200 mg PO BID #60 tab Transmission Status: Received by [facility] Metoprolol Tartrate [Lopressor (beta zeferino)] 25 mg PO BID #60 tab Transmission Status: Received by [facility] Oxycodone [Oxyir] 5 mg PO Q6H PRN PRN 3 Days #18 tablet PRN Reason: Pain Transmission Status: Sent to [facility] Ergocalciferol [Vitamin D] 50,000 unit PO Q7D #7 cap Transmission Status: Received by [facility] Primary Care Physician: [facility] [Primary Care Provider] - Please follow up with your Primary Care Physician in: 1 Week Test Results: Test results from this visit will be discussed in further detail at your follow- up appointment, if applicable. Please Follow Up With: Meño Blanton MD When: 1-2 Weeks, May see MANAGER PHOTO/PA Please Follow Up With: [facility] When: 3-5 days Proposed Discharge Date: 10/14/18
--- NOTE | 2018-10-14 11:45 | CASEMGMT ---
Therapy is recommending further skilled therapy for pt at this time. This RN CM to room and therapy recommendations given to pt at this time. This RN CM explained SNF, HHC and OP at this time and pt declines all at this time. Pt states that his takes care of him and he has no need for any further therapy at this time. Pt does qualify for home oxygen at this time and [facility] as he states he is ready to go home today. [facility] is [facility] preferred provider for home oxygen at this time and pt states he would like to use them at this time. Pt states that he may eventually(if oxygen still needed) have the [facility] take over the home oxygen at some point as he sees pulmonology at the [facility]. Pt states was recently tested for home oxygen at the [facility] and did not qualify at that time. Referral faxed to [facility] with order for mini portable tanks d/t pt's right arm injury along with facesheet, copy of insurance card and face to face at this time. [facility] is aware that pt is up for discharge today, voices understanding. [place] RN KAMILLA
--- NOTE | 2018-10-14 11:47 | DS.PCM_ITS ---
<Keri Barclay - Last Filed: 10/14/18 12:24> Discharge Date and Diagnosis - Problem List Patient Problems: Active and Suspected Problems Atrial fibrillation with RVR (Acute) Date of Admission: 10/12/18 Date of Discharge: 10/14/18 - Primary Discharge Diagnosis Active and Suspected Problems 1. Atrial fibrillation with RVR, history of paroxysmal atrial fibrillation 2. Presyncope with fall secondary to #1 3. Chronic COPD 4. GERD 5. Anxiety/depression 6. Chronic back pain, multiple vertebral compression fractures 7. Tobacco dependence 8. Vitamin D deficiency 9. Right shoulder pain secondary to strain from fall as a result of #2 - Secondary Discharge Diagnosis Chronic Problems GERD (gastroesophageal reflux disease) (Chronic) PAF (paroxysmal atrial fibrillation) (Chronic) Chronic back pain (Chronic) Depression with anxiety (Chronic) COPD (chronic obstructive pulmonary disease) (Chronic) Tobacco dependence (Chronic) Hospital Course and Treatment Imaging Results: Diagnostic Data Brain CT 10/12/18 10:50 IMPRESSION: No acute intracranial hemorrhage, mass effect or acute large territory infarcts. Electronically Signed: Palomo Shook, at 12:28 EDT Tel , Service support , Cervical Spine CT 10/12/18 10:[address] 10/12/18 10:51 IMPRESSION: Bilateral emphysematous changes with a superimposed interstitial fibrosis. Left lower lobe nodule which needs further assessment with follow-up chest CT in 3 months Coronary vascular calcifications. Multiple compression fractures of the thoracic vertebrae involving T1, T5, T6, T8 and T11 levels of indeterminate age Electronically Signed: Palomo Shook, at 12:41 EDT Tel , Service support , Shoulder X-Ray 10/12/18 12:00 Dr. Blanton- Cardiology Operations: None Procedures: 2-D Echocardiogram Summary of Care Provided: The patient is a 73 year old M admitted 10/12/2018 due to dizziness with fall. 1. Atrial fibrillation with RVR, history of paroxysmal atrial fibrillation- failed cardioversion x2. Continue home Eliquis regimen. Dr. Blanton consulted. Flecainide discontinued. Initiated on amiodarone 200 mg twice daily and metoprolol 25 mg twice daily. Echocardiogram demonstrated an EF of 45%. Follow-up with cardiology in 1 to 2 weeks. 2. Presyncope with fall secondary to #1-resulting in right shoulder sprain and right forehead laceration. Laceration intact and did not require suturing. Right arm sling, apply ice. PRN pain regimen and outpatient follow-up with Ortho. Added scheduled Tylenol 1000 mg every 8 hours. 3. Chronic COPD- no acute exacerbation. 4. GERD-continue Zantac regimen. 5. Anxiety/depression-continue home Wellbutrin regimen. 6. Chronic back pain-outpatient follow-up with Ortho. Patient states his pain has worsened recently. CT of chest with multiple compression fractures of indeterminate age. 7. Tobacco dependence- encouraged cessation. 8. Vitamin D deficiency-vitamin D 25 hydroxy 9.7. Initiated on ergocalciferol or 50,000 units which she will continue weekly for 8 doses. Recommend repeat vitamin D level in 3 months. Following completion of 50,000 units weekly, recommend cholecalciferol 2000 units daily which can be further prescribed and monitored by primary care physician. General: Alert, Oriented x3, Cooperative HEENT: Atraumatic, PERRLA, EOMI, Normocephalic Neck: Supple, No JVD, Negative Carotid Bruits Lungs: Clear to auscultation, Normal air movement Cardiovascular: - - Atrial fibrillation, rate controlled Abdomen: Bowel Sounds Present, Soft, Non Tender Extremities: No clubbing, No cyanosis, No edema, Capillary Refill Less than 3 Seconds Skin: No rashes, No breakdown, - - Right forehead laceration Musculoskeletal: Tenderness - Right shoulder Neurological: Cranial nerves II-XII grossly intact, Neuro grossly intact Psych/Mental Status: Normal Affect, Appropriate Patient seen and examined prior to discharge. Physical assessment as noted above. Patient is stable for discharge with follow up recommendations as noted above. This patient was seen by VALE Mckay under the supervision of Dr. Hays. Patient Problems: Active and Suspected Problems Atrial fibrillation with RVR (Acute) - Physical Exam Vital Signs Temp Pulse Resp BP Pulse Ox 97.6 F L 77 14 99/57 L 97 10/14/18 08:37 10/14/18 08:37 10/14/18 08:37 10/14/18 08:37 10/14/18 10:47 Oxygen Flow Rate (L/min) [ 3 AMBULATION with Oxygen] Oxygen Flow Rate (L/min) [1] 2 Oxygen Flow Rate (L/min) [2] 4 Oxygen Flow Rate (L/min) 2 Oxygen Delivery Method [1] Nasal Cannula Oxygen Delivery Method [2] Nasal Cannula Oxygen Delivery Method Room Air Weight: 147 lb 11.355 oz Body Mass Index (BMI) 19.5 Intake and Output for Last 24 Hours 10/12/18 10/13/18 10/14/18 23:59 23:59 23:59 Intake Total 1317 / 1317 420 / 420 Output Total 450 / 450 Balance 867 / 867 420 / 420 Laboratory Tests Past 24 Hrs 10/13/18 11:12 Vitamin D 25-Hydroxy 9.7 L Discharge Diet: No Restrictions Discharge Activity: Return to Normal Activity Call your doctor if you observe: Shortness of breath, Dizziness, Fainting spells, Chest pain Home Medications: Medications to take at Discharge Apixaban [Eliquis] 5 mg PO BID 06/03/15 Cyclobenzaprine HCl 10 mg PO TID PRN PRN 06/03/15 Ipratropium/Albuterol Respimat [Combivent Respimat Inhal [place]] 1 puff INHALATION 4X/DAY 06/03/15 Ranitidine [Zantac] 150 mg PO DAILY 06/03/15 buPROPion XL [Wellbutrin Xl] 300 mg PO DAILY 06/03/15 Fluticasone 0.05% [Flonase Nasal [place]] 2 spray NASAL DAILY 10/12/18 Acetaminophen [Tylenol] 1,000 mg PO Q8 tab 10/14/18 Amiodarone HCl [Cordarone] 200 mg PO BID #60 tab 10/14/18 Ergocalciferol [Vitamin D] 50,000 unit PO Q7D #7 cap 10/14/18 Metoprolol Tartrate [Lopressor (beta zeferino)] 25 mg PO BID #60 tab 10/14/18 Oxycodone [Oxyir] 5 mg PO Q6H PRN PRN 3 Days #18 tab 10/14/18 Following Prescrptions Were Given to Patient: Amiodarone HCl [Cordarone] 200 mg PO BID #60 tab Transmission Status: Received by [id number] Metoprolol Tartrate [Lopressor (beta zeferino)] 25 mg PO BID #60 tab Transmission Status: Received by [id number] Oxycodone [Oxyir] 5 mg PO Q6H PRN PRN 3 Days #18 tab PRN Reason: Pain Transmission Status: Received by [facility] Ergocalciferol [Vitamin D] 50,000 unit PO Q7D #7 cap Transmission Status: Received by [id number] - Please follow up with your Primary Care Physician in: 1 Week Please Follow Up With: Meño Blanton MD When: 1-2 Weeks, May see MARINE ENGINEERING TEACHER/PA Please Follow Up With: [facility] When: 3-5 days Disposition: Home Minutes spent on discharge:: 35 Patient Condition:: Stable Medical Necessity - Tobacco Use Smoking Status: Current every day smoker Tobacco Use: Cigarettes Meaningful Use Info Meaningful Use Diagnoses (Choose all that apply): None applicable <Tyler Hays - Last Filed: 10/14/18 12:33> Discharge Date and Diagnosis - Secondary Discharge Diagnosis Chronic Problems GERD (gastroesophageal reflux disease) (Chronic) PAF (paroxysmal atrial fibrillation) (Chronic) Chronic back pain (Chronic) Depression with anxiety (Chronic) COPD (chronic obstructive pulmonary disease) (Chronic) Tobacco dependence (Chronic) Hospital Course and Treatment Operations: None Procedures: 2-D Echocardiogram Summary of Care Provided: Patient seen and examined independently. Data reviewed. I agree with the above note by the nurse practitioner. 1. Atrial fibrillation with RVR * Improved at this time. * Flecainide discontinued and currently on amiodarone and metoprolol. * Cardiology input appreciated * Continue apixaban 2. Near syncope * Supportive management 3. Right shoulder pain * Likely due to strain from his fall. No obvious dislocation at this time * Follow-up with orthopedics as outpatient * I suspect probably at least partial rotator cuff tear 4. Vitamin D deficiency * 25 hydroxy vitamin D level very low at 9.7. We will initiate ergocalciferol 50,000 units. Patient continue with ergocalciferol weekly for 8 doses and then cholecalciferol 2000 units daily thereafter. In approximate 3 months, check a 25-hydroxy vitamin D level with a goal level being around 50. 5. Vertebral compression fractures * Patient has 5, just within his thoracic vertebrae, at T1, T5, T6, T8 and T11. Patient has pain but no radicular signs. Would not pursue any additional evaluation unless his symptoms become worse or signs that may warrant kyphoplasty. * I suspect that these are new as patient states that he has not had any recent falls though unable to be determined at this time. [] - Physical Exam General: Alert, No apparent distress HEENT: Atraumatic, Normocephalic Oral: Moist Mucosa, No Gingival or Mucosal Lesions/ Ulcerations Neck: No Nodes, Thyroid Normal Size and Texture Lungs: Clear to auscultation, Normal air movement, No rhonchi, No wheeze, No rales Cardiovascular: Regular rate, Regular Rhythm, Normal S1, Normal S2, No murmurs Abdomen: Bowel Sounds Present, Soft, Non Tender, Non-Distended Vital Signs Temp Pulse Resp BP Pulse Ox 36.4 C L 77 14 99/57 L 97 10/14/18 08:37 10/14/18 08:37 10/14/18 08:37 10/14/18 08:37 10/14/18 10:47 Oxygen Flow Rate (L/min) [ 3 AMBULATION with Oxygen] Oxygen Flow Rate (L/min) [1] 2 Oxygen Flow Rate (L/min) [2] 4 Oxygen Flow Rate (L/min) 2 Oxygen Delivery Method [1] Nasal Cannula Oxygen Delivery Method [2] Nasal Cannula Oxygen Delivery Method Room Air Weight: 67 kg Body Mass Index (BMI) 19.5 Intake and Output for Last 24 Hours 10/12/18 10/13/18 10/14/18 23:59 23:59 23:59 Intake Total 1317 / 1317 420 / 420 Output Total 450 / 450 Balance 867 / 867 420 / 420 Discharge Diet: No Restrictions Discharge Activity: Return to Normal Activity Call your doctor if you observe: Shortness of breath, Dizziness, Fainting spells, Chest pain Disposition: Home Minutes spent on discharge:: 35 Patient Condition:: Stable Medical Necessity - Tobacco Use Tobacco Use: Cigarettes Meaningful Use Info Meaningful Use Diagnoses (Choose all that apply): None applicable Code Visit Inpatient E&M: 66124 Disch Hosp
--- NOTE | 2018-10-14 14:27 | CASEMGMT ---
Call to [facility] and they state that they had spoken with and asked her whether she thought pt needed a tank to go home on and she wasn't sure so they just decided that pt did not need a tank to go home with because he was 97% on RA at rest. This RN CM advised him that pt does need a tank to go home on as he drops with 82% with any ambulation at all and this is why this RN CM had called when referral was faxed initially to advise that tank needed. Per [facility] rep, the tank will be delivered within the hour. Sweetie BERRY is updated on all, voices understanding. Vik BERRY CM
--- NOTE | 2018-10-14 15:43 | CASEMGMT ---
KRISTI KOHLI Note: Call to [facility], to get delivery time for portable tank delivery. Deliver will be within next few minutes, medical van driver is close to hospital. KRISTI Betancourt updated. Maria Elena BERRY CM
--- NOTE | 2018-10-15 13:07 | CASEMGMT ---
Addendum entered by Scotty Grant 10/15/18 13:19: Return call received from Pt's . She states pt is continuing to have back pain with movement, and they had difficulty getting him out of bed. states pt now is using recliner and having easier time to getting up. KRISTI KOHLI reviewed medications including pain medications ordered. Pt is taking as ordered. states [facility] KRISTI KOHLI discussed with pt may benefit from Home Health. Pt does not have local phyisician and they would like to do [facility] Home [facility] through [facility]. knows Team # and nurse to call and plans to call for Home Health Referral. KRISTI KOHLI offered to help, but states she can do this. -No further questions, and thanked KRISTI KOHLI for reviewing DC instructions and advice to call [facility] for assist and possible home health. Pt is wearing home oxygen. Maria Elena DENNIS Original Note: KRISTI KOHLI DC PHONE CALL DC DATE: 10.14.18 DC Disposition: Home Diagnosis on Discharge: Home LACE/STRATA: 11/27 Attempted call to listed phone #. No answer, and no message turkey picker. Maria Elena DENNIS
--- NOTE | 2018-10-20 10:07 | CASEMGMT ---
This RN CM received a message to call pt's this am. Call to pt's , Diana Wu, and she states concerns with pt at this time. Per Diaan, pt has not been out of bed in days d/t dizziness and back pain. She states pt' blood pressure lying is 118systolic but drops to 90systolic with sitting up and pt has dizziness with sitting up and feels unable to stand. states that pt is in an upstairs bedroom and she is not able to assist him getting out of bed. states that pt has increased SOB and pt feels that oxygen 'is not helping.' states that pt has been wearing oxygen at home. states that pt had f/u appt's scheduled today that she had to cancel d/t pt inability to get out of bed. This RN CM advised that pt should be seen by a physician for worsening symptoms at this time and states she would have to call 911 as she can't get pt to hospital on her own. This RN CM updated BENITA Mariscal in the ED, in regards to same at this time, voices understanding. Vik BERRY CM
== END 2018-10-14 16:41 | disposition home or self-care (01) | DRG 309 ==
LOC: ED 14:52 → PCU 17:13
PROVIDERS: Admitting Provider Nurse Practitioner Family; Emergency Provider Emergency Medicine; Family Provider Family Medicine; Referring Provider Nurse Practitioner Family
DX: I48.0 Paroxysmal atrial fibrillation (principal); J96.11 Chronic respiratory failure with hypoxia; M48.50XA Collapsed vertebra, not elsewhere classified, site unspecified, initial encounter for fracture; J44.9 Chronic obstructive pulmonary disease, unspecified; K21.9 Gastro-esophageal reflux disease without esophagitis; E55.9 Vitamin D deficiency, unspecified; F17.210 Nicotine dependence, cigarettes, uncomplicated; S43.401A Unspecified sprain of right shoulder joint, initial encounter; S01.81XA Laceration without foreign body of other part of head, initial encounter; Z82.49 Family history of ischemic heart disease and other diseases of the circulatory system; W19.XXXA Unspecified fall, initial encounter; Y92.009 Unspecified place in unspecified non-institutional (private) residence as the place of occurrence of the external cause; F41.8 Other specified anxiety disorders; Z79.899 Other long term (current) drug therapy; Z79.01 Long term (current) use of anticoagulants; I25.10 Atherosclerotic heart disease of native coronary artery without angina pectoris; I10 Essential (primary) hypertension; R55 Syncope and collapse
CPT/HCPCS: 36415; 70450; 71250; 72125; 73030; 80048; 82306; 83735; 84443; 84484; 85025; 92960; 93005; 93306; 94640; 97162; 97166; 97530; 97802; 99285; 99406; J7030; Q9957; A4216; C8929; J2405

== ENCOUNTER 2018-10-20 10:23 | Inpatient (IN) | payer MEDICARE, SELFPAY ==
[2018-10-12 18:16] VITALS: BMI 19.5
[2018-10-20] VITALS (15 sets, daily range): BP systolic 81–126; BP diastolic 52–90; PULSE 50–78; RESP 16–18; TEMP 36.3–36.4; O2SAT 91–99; BMI 19.8; BMI 19.7
--- NOTE | 2018-10-20 10:38 | EKG12_ITS ---
Test Reason : HYPOTENSION Blood Pressure : / mmHG Vent. Rate : 081 BPM Atrial Rate : 300 BPM P-R Int : 000 ms QRS Dur : 092 ms QT Int : 412 ms P-R-T Axes : 000 -44 011 degrees QTc Int : 478 ms Atrial Flutter Left axis deviation Poor R-Wave Progression Abnormal ECG Confirmed by CORIN RODRIGUES, EFRAÍN ([id number]), editor continuity and script JESÚS GARCIA ([id number]) on 10/22/2018 11:53:11 AM Referred By: Tahmina Lisa Confirmed By:EFRAÍN COOMBS MD
--- NOTE | 2018-10-20 10:39 | ED.VIS.GEN ---
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 He also has some back pain some chest pain. He was recently admitted for atrial fibrillation. He is anticoagulated, he did have trauma to his right shoulder, he is complaining of quite a bit of back pain he is found to have chronic compression fractures. He tells me he is sitting at home and does not ambulate. He tells me it is difficult to get out of bed. He was found to be hypotensive per EMS. He does tell me that he recently had metoprolol added to his medication list. Is any chest pain or back pain. He has chronic shortness of breath but no worsening of his breathing or cough. Past Medical History - Allergies and Home Meds Allergies/Adverse Reactions: Allergies varenicline tartrate [From Chantix] Allergy (Verified 10/12/18 10:05) Unknown Primary Care Physician: [facility] [Primary Care Provider] - Prior records reviewed: Yes - Reviewed his prior hospitalization as well as medical problems. Past Medical History: - - Reviewed see [employer] Surgical History: - - Tonsillectomy, vagotomy. Lives: Spouse/ Significant Other Smoking Status: Current every day smoker - Family History Maternal Family History: Reports: Hypertension, - - Polio Paternal Family History: Reports: - - Father passed at age 47 due to NH. Review of Systems All systems negative except as indicated General: Reports: - - Generalized weakness as in HPI. Denies: Fever Cardiovascular: Denies: Chest pain Respiratory: Reports: Dyspnea, Cough Gastrointestinal: Denies: Abdominal pain, Nausea Musculoskeletal: Reports: Back pain Skin: Reports: Wounds Neurological: Reports: Weakness Hematologic: Reports: Easy bruising Physical Exam Vital Signs/Narrative: Vital Signs Temp Pulse Resp BP Pulse Ox 10/20/18 10:24 97.5 F L 78 18 108/75 92 General: Well nourished, Well developed Head: Normocephalic, Atraumatic Eyes: Perrl, EOMI ENT: Dry mucous membranes Cardiovascular: Irregular Respiratory: - - Coarse bilateral breath sounds Abdomen: Soft, Nontender Back: - - There is a contusion medial to the right shoulder extending into his upper back Extremities: Negative for: Tenderness, Edema Skin: - Neurological: Alert, Oriented x3 - Contusion as above Psychological: Normal affect Diagnostic/Tx/Re-eval - Medical Decision Making She has an unremarkable work-up, however he did have one episode where his blood pressure was 90s over 50s in the ambulance. I discussed with social work, and attempt was made to place him in the TCU at our hospital however this was denied due to transient hypotension, I was told however that they would accept him if he is stable tomorrow in the meantime we will admit him to the hospital for observation. Disposition admit stable condition ED Disposition - Plan for ED Patient: [facility] [[facility] -
[2018-10-20] MEDS: 0.9% Normal Saline 1,000 ML 1000 ML IV (10:55)
[2018-10-20 11:05] LABS: Absolute Lymphocyte Count 1.95 X10^3/uL (0.83-4.51); Absolute Neutrophil Count 7.9 X10^3/uL (2.0-7.7); Basophil# 0.05 X10^3/uL; Basophil% 0.4 % (0-1); Eosinophil# 0.38 X10^3/uL; Eosinophils% 3.3 % (0-5); Hematocrit 45.4 % (40-54); Hemoglobin 15.4 g/dL (13.0-16.5); Lymphocyte # 1.95 X10^3/ul (4.0); Lymphocyte % 17.1 % (19-41); Mean Corp Hgb Conc 33.9 g/dL (32-36); Mean Corpuscular Hgb 35.2 pg (27.0-32.0); Mean Corpuscular Volume 103.7 fL (80-94); Mean Platelet Vol. 10.6 fl (6.2-12.0); Monocyte# 1.04 X10^3/uL; Monocyte% 9.1 % (0-10); NRBC Flagged by Analyzer 0 % (0-5); Neutrophil # 7.93 X10^3/uL (2.7-7.7); Neutrophil % 69.6 % (47-70); Platelet Count 331 K/mm3 (150-450); RBC Distribution Width CV 12.7 % (11.6-14.6); RBC Distribution Width SD 48.7 fl (35.1-43.9); Red Blood Count 4.38 M/mm3 (4.6-6.2); White Blood Count 11.4 K/mm3 (4.4-11.0)
--- NOTE | 2018-10-20 11:11 | RAD_ITS ---
STUDY: X-RAY CHEST REASON FOR EXAM: Male, 73 years old. Shortness of breath/dyspnea. TECHNIQUE: AP and lateral views of the chest. COMPARISON: Comparison is made with prior study dated May 13, 2015. FINDINGS: EKG electrodes are seen. Since prior study, there has been progression of the increased interstitial markings with areas of confluence in the right upper lobe as well as in the left upper lobe and left lower lobes. This is suggestive of progressive interstitial fibrosis. Blunting of the left costophrenic angle. Normal size heart. Normal mediastinum and zoey. Normal visualized pulmonary arteries. There is atherosclerotic tortuosity of the aortic arch and descending thoracic aorta. Normal visualized thoracic spine. Normal visualized ribs, clavicles, and shoulders. Surgical clips are seen in the epigastric region. RAD/Chest PA and Lateral IMPRESSION: Findings suggestive of progressive interstitial scarring worse in the left hemithorax. Electronically Signed: Sánchez Mott, at 11:30 EDT , Service support ,
[2018-10-20 11:21] LABS: ALB/GLOB Ratio 0.6 RATIO (0.9-2.4); AST(SGOT) 17 U/L (15-37); Alanine Aminotransfer ALT/SGPT 13 U/L (16-61); Albumin, Serum 2.7 g/dL (3.2-5.0); Alkaline Phosphatase 135 U/L (45-117); Anion Gap 7 (5-15); BUN 19 mg/dL (7-18); BUN/Creat Ratio 15.7 RATIO (10-20); Calcium,Total 8.7 mg/dL (8.5-10.1); Chloride 106 mmol/L (98-107); Creatinine, Serum 1.21 mg/dL (0.70-1.30); EST Glomerular Filtration Rate 63 mL/min (>60); Est Glom Filt Rate - Afr Amer 76 mL/min (>60); Globulin 4.5 g/dL (2.2-4.2); Glucose 78 mg/dL (74-106); Potassium 4.2 mmol/L (3.5-5.1); Protein, Total 7.2 g/dL (6.4-8.2); Sodium Level 139 mmol/L (136-145)
--- NOTE | 2018-10-20 11:25 | CM.ED ---
Social Work Assessment Date of Assessment: 10/20/18 Informant: FITNESS AND WELLNESS COORDINATOR, ARTI Amarilys- RECEIVED PHONE CALL FROM THIS MORNING. Reason for Consult: D/C PLANNING Information obtained from: CHART REVIEW, CASE MANAGEMENT, PATIENT AND , [facility] (Huy) [phone] (C) [phone] Living Arrangements: PATIENT LIVES HOME WITH IN A 2 STORY HOME Employment/Financial: RETIRED Supports: PATIENT CONNECTED WITH THE [place] Social/Family Stressors: REPORTS UPON D/C FROM HOSPITAL (10/14/18) PATIENT WAS ABLE TO SLOWLY GET UP THE STAIRS OF HIS HOME AND HAS BEEN UNABLE TO GET UP SINCE. PATIENT HAS NOT HAD A BOWEL MOVEMENT SINCE HOME AND WAS ONLY ABLE TO USE A URINAL. STATES UNABLE TO CARE FOR PATIENT IN THE HOME AND BOTH ARE IN AGREEMENT WITH REHAB PRIOR TO HOME GOING. Mental Health History: PATIENT REPORTS HX OF PTSD AND DEPRESSION AND STATES IS TREATED WITH MEDICATION. Substance Abuse History: PATIENT DENIES ANY HX OF SUBSTANCE ABUSE Interventions: SOCIAL SERVICE ASSESSMENT EDUCATION ON REHAB AND OPTIONS Assessment: PATIENT IS A 73 Y/O MALE WHO PRESENTS TO ED FOR HYPOTENSION. THIS WORKER MET WITH PATIENT AND IN ROOM. INTRODUCED ROLE AND REASON FOR REFERRAL. AND PATIENT STATE SINCE DISCHARGE PATIENT HAS BEEN UNABLE TO GET OUT OF BED AND HAS BEEN USING A URINAL FOR TOILETING. PATIENT AND REPORT PATIENT HAS NOT HAD A BOWEL MOVEMENT FOR A WEEK. STATES IS UNABLE TO CARE FOR PATIENT IN THE HOME. THIS WORKER DISCUSSED ALL OPTIONS WITH PATIENT AND . DR. SMITH COMPLETING WORK UP ON PATIENT AT THIS TIME. INFORMED PATIENT AND THIS WORKER WILL BE FOLLOWING ALONG TO ASSIST WITH SAFE D/C PLANNING. PLAN: TBD
--- NOTE | 2018-10-20 12:10 | CM.ED ---
SOCIAL WORK DISCUSSED PATIENT'S CASE WITH DR. SMITH. THIS WORKER TO ASSIST WITH D/C PLANNING FOR REHAB UNABLE TO CARE FOR PATIENT IN THE HOME. MET WITH PATIENT AND TO DISCUSS OPTIONS FOR PLACEMENT. BOTH REQUESTING REFERRAL TO TCU. THIS WORKER TO UPDATE TCU ON REFERRAL. LEORA JUAREZ, SPIDER ASSEMBLER, SPACE SCHEDULER.
--- NOTE | 2018-10-20 12:18 | CM.ED ---
SOCIAL WORK CALL TO THE REFERRAL LINE REGARDING REFERRAL FOR TCU. LEFT MESSAGE WITH LORIE. AWAITING CALL BACK. LEORA JUAREZ, WEB CONSULTANT, PRINTER OPERATOR.
--- NOTE | 2018-10-20 13:20 | CM.ED ---
SOCIAL WORK RECEIVED CALL BACK FROM [facility] WITH TCU. PER [facility], REQUESTING PATIENT BE ADMITTED OBSERVATION. CANNOT ACCOMMODATE PATIENT FROM ED AND WILL NEED TO OBTAIN PRECERT FROM [facility]. UPDATED DR. SMITH, PATIENT AND . PLAN: ADMIT OBSERVATION. TCU PENDING PRECERT.
--- NOTE | 2018-10-20 13:39 | HP.PCM_ITS ---
Problem List (1) Right shoulder pain Status: Acute Qualifiers: Chronicity: acute Qualified Code(s): M25.511 - Pain in right shoulder (2) Failure to thrive Status: Acute Qualifiers: Failure to thrive age range: in adult Qualified Code(s): R62.7 - Adult failure to thrive (3) GERD (gastroesophageal reflux disease) Status: Chronic Qualifiers: Esophagitis presence: esophagitis presence not specified Qualified Code(s): K21.9 - Gastro-esophageal reflux disease without esophagitis (4) PAF (paroxysmal atrial fibrillation) Status: Chronic (5) Chronic back pain Status: Chronic Qualifiers: Back pain location: back pain in unspecified location Back pain laterality: bilateral Qualified Code(s): M54.9 - Dorsalgia, unspecified; G89.29 - Other chronic pain (6) Depression with anxiety Status: Chronic (7) COPD (chronic obstructive pulmonary disease) Status: Chronic Qualifiers: COPD type: unspecified COPD Qualified Code(s): J44.9 - Chronic obstructive pulmonary disease, unspecified (8) Tobacco dependence Status: Chronic History of Present Illness Date of Admission: 10/20/18 Chief Complaint: Acute right shoulder pain, debility, inability to ambulate The patient is a 73 y/o M w/ PMHx: PAF, anxiety and depression, chronic back pain, Chronic COPD with chronic hypoxic respiratory failure, GERD, severe protein calorie malnutrition recently discharged following admission from 10/12/18 to 10/14/18 treated for acute atrial fibrillation with RVR with presyn cope secondary to this event with fall with right shoulder and right back pain who re-presents to the [facility] ED on 10/20/18 with complaints of near bedbound status secondary severity of right shoulder pain and right-sided back pain since most recent discharge with also complaint of mild lightheadedness and dizziness upon positional changes with questionable hypotension following increase metoprolol regimen. Per discussion with the ED EMS did note initial systolic of 90 however upon ED presentation patient blood pressures remained appropriate with map greater than 70 with no complaints of lightheadedness or dizziness but notable ongoing right shoulder and right lateral back pain. Work-up in the ED included T 97.5, heart rate 78, BP 108/75, respiratory rate 18, 92% on room air, CBC with WC 11.4, hemoglobin 15.4, platelets 331 with mild left shift, CMP with BUN 19, creatinine 1.21, AST 17, ALT 13, alk phos 135, chest x-ray with findings suggestive of progressive interstitial scarring worst in the left hemithorax. In the ED patient ministered normal saline. Past Medical History Past Medical History (Chronic Problems): Chronic Problems GERD (gastroesophageal reflux disease) (Chronic) PAF (paroxysmal atrial fibrillation) (Chronic) Chronic back pain (Chronic) Depression with anxiety (Chronic) COPD (chronic obstructive pulmonary disease) (Chronic) Tobacco dependence (Chronic) Allergies varenicline tartrate [From Chantix] Allergy (Verified 10/12/18 10:05) Unknown Home Medications: Ambulatory Orders Medication Instructions Recorded Apixaban [Eliquis] 5 mg PO BID 06/03/15 Cyclobenzaprine HCl 10 mg PO TID PRN PRN 06/03/15 Ipratropium/Albuterol Respimat 1 puff INHALATION 4X/DAY 06/03/15 [Combivent Respimat Inhal Henry] Ranitidine [Zantac] 150 mg PO DAILY 06/03/15 buPROPion XL [Wellbutrin Xl] 300 mg PO DAILY 06/03/15 Fluticasone 0.05% [Flonase Nasal 2 spray NASAL DAILY 10/12/18 Henry] Amiodarone HCl [Cordarone] 200 mg PO BID #60 tab 10/14/18 Metoprolol Tartrate [Lopressor 25 mg PO BID #60 tab 10/14/18 (beta zeferino)] Acetaminophen [Tylenol] 500 - 1,000 mg PO Q6H PRN PRN 10/20/18 Ergocalciferol [Vitamin D] 50,000 unit PO MO 10/20/18 Oxycodone [Oxyir] 5 mg PO Q6H PRN PRN 10/20/18 Sertraline HCl [Zoloft] 150 mg PO DAILY 10/20/18 Surgical History: - - Tonsillectomy, vagotomy. Psychiatric History: Anxiety, Depression Lives: Spouse/ Significant Other Smoking Status: Current every day smoker Tobacco Use: Cigarettes Alcohol: None Drugs: None - *Family History Maternal History Items: Hypertension, - - Polio Paternal History Items: Heart Disease, Hypertension, - - Father passed at age 47 due to [place]. Review of Systems Constitutional: Reports: Malaise, Weakness, Fatigue. Denies: Chills, Fever, Weight Change HEENT: Denies: Head Aches, Sinus Congestion, Sinus Drainage Cardiovascular: Reports: Chest Pain. Denies: Palpitations Respiratory: Reports: Shortness of breath upon exertion. Denies: Cough, Shortness of breath at rest, Sputum production, Wheezing Gastrointestinal: Denies: Abdominal Pain, Nausea, Vomiting Genitourinary: Denies: Dysuria Musculoskeletal: Reports: Back Pain, Joint Pain, Neck Pain, Shoulder Pain. Denies: Joint Tenderness Skin: Reports: Skin Changes. Denies: Rash, Wounds Neurological: Denies: Numbness, Tingling, Focal weakness Psychiatric: Reports: Anxiety, Depression. Denies: Homicidal Ideations, Suicidal Ideations Hematologic/ Lymphatic: Reports: Easy Bruising, Easy Bleeding VTE Information - Inpt Only VTE Present on Admission: No VTE Mechan Device Prophylaxis: SCD's VTE Pharm Prophylaxis ordered?: No Reason prophylaxis not ordered:: Treatment Not Indicated - Continue home Eliquis regimen. Patient Problems: Active and Suspected Problems Right shoulder pain (Acute) Failure to thrive (Acute) Subjective: Seated upright in ED bed, fatigued appearance, extremely uncomfortable with any movement attempt, severe debility, unable to sit up even with two-person assist without market complete aide. Objective: Physical Examination: General: awake, alert, oriented x 3 and cooperative, seated upright in the ED bed, uncomfortable appearing, unable to move by self, excessive greater than 2 person assist with complete assist needs. Skin: normal color, turgor, no icterus, cyanosis except for staged ecchymoses to the right lateral chest, shoulder and back status post fall prior. HEENT: AT/NC, EOMI, PERRLA, dry MM, no carotid bruits or JVD noted. Lungs: Diminished breath sounds, greater bilateral bases, moderate effort, no rales, ronchi or wheezing. Heart: Regular rhythm; no gallop, rub audible. Abdomen: soft, thin, mildly cachectic habitus, NTTP, ND, normal BS, no HSM. Extremities: no cyanosis, clubbing, notable discomfort with any palpation of the right lateral chest, right lateral back in the thoracic region, shoulder and periscapular regions, extreme discomfort and debility with attempts for abduction. Neurological: patient awake, alert, oriented x 3; cognitive function intact; pupils equally reactive to light and accomodation; cranial nerves II-XII grossly normal, moving all 4 extremities although extremely limited right upper extre mity movement, strength very debilitated secondary to recent fall with suspected underlying right shoulder injury, strength accordingly severely global decrease. Psychiatric: affect appears fatigued, no acute evidence of depressive or anxiety feelings. - Physical Exam Vital Signs Temp Pulse Resp BP Pulse Ox 97.5 F L 72 18 115/84 H 93 10/20/18 13:25 10/20/18 13:25 10/20/18 13:25 10/20/18 13:25 10/20/18 13:25 Oxygen Flow Rate (L/min) 2 Oxygen Delivery Method Nasal Cannula Weight: 146 lb 4.8 oz Body Mass Index (BMI) 19.8 Intake and Output for Last 24 Hours 10/18/18 10/19/18 10/20/18 23:59 23:59 23:59 Intake Total 1000 / 1000 Balance 1000 / 1000 Laboratory Tests Past 24 Hrs 10/20/18 10/20/18 11:00 11:00 WBC 11.4 H RBC 4.38 L Hgb 15.4 Hct 45.4 MCV 103.7 H MCH 35.2 H MCHC 33.9 RDW Std Deviation 48.7 H RDW Coeff of Elizabeth 12.7 Plt Count 331 MPV 10.6 Immature Gran % (Auto) 0.500 Neut % (Auto) 69.6 Lymph % (Auto) 17.1 L [place] % (Auto) 9.1 Eos % (Auto) 3.3 Baso % (Auto) 0.4 Absolute Neuts (auto) 7.9 H Absolute Lymphs (auto) 1.95 Nucleated RBC % 0 Sodium 139 Potassium 4.2 Chloride 106 Carbon Dioxide 26.0 Anion Gap 7 BUN 19 H Creatinine 1.21 Estim Creat Clear Calc 51.80 Est GFR (MDRD) Af Amer 76 Est GFR (MDRD) Non-Af 63 BUN/Creatinine Ratio 15.7 Glucose 78 Calcium 8.7 Total Bilirubin 0.60 AST 17 ALT 13 L Alkaline Phosphatase 135 H Total Protein 7.2 Albumin 2.7 L Globulin 4.5 H Albumin/Globulin Ratio 0.6 L Assessment/Plan All Active Problems Right shoulder pain (Acute) Failure to thrive (Acute) Atrial fibrillation with RVR (Acute) The patient is a 73 y/o M w/ PMHx: PAF, anxiety and depression, chronic back pain, Chronic COPD with chronic hypoxic respiratory failure, GERD, severe protein calorie malnutrition recently discharged following admission from 10/12/18 to 10/14/18 treated for acute atrial fibrillation with RVR with presyncope secondary to this event with fall with right shoulder and right back pain who re-presents to the [facility] ED on 10/20/18 with complaints of near bedbound status secondary severity of right shoulder pain and right-sided back pain since most recent discharge with also complaint of mild lightheadedness and dizziness upon positional changes with questionable hypotension following increase metoprolol regimen. 1. Acute right shoulder and lateral right back pain on chronic back pain: Work- up in the ED included T 97.5, heart rate 78, BP 108/75, respiratory rate 18, 92% on room air, CBC with WC 11.4, hemoglobin 15.4, platelets 331 with mild left shift, CMP with BUN 19, creatinine 1.21, AST 17, ALT 13, alk phos 135, chest x- ray with findings suggestive of progressive interstitial scarring worst in the left hemithorax. Prior admission with plain film of the shoulder with no acute findings, CT chest with multiple compression fractures of indeterminate age likely chronic with chronic back pain history, injury to the right shoulder and right lateral back upon near syncopal events prior to last admission with ongoing severe debility following discharge and near inability to himself out of bed with high fall risk prompting return to the ED. Upon recent discharge patient had been encouraged to follow-up outpatient with orthopedic surgery but has yet to have seen them. Will admit to [place], maintain on fall precautions, frequent positioning, po/IV pain regimen, anti-emetics, bowel regimen. Will consult PT, OT, case management for evaluation. From current examination some concern for possible rotator cuff, shoulder injuries with likely need for outpatient MRI. Pending further evaluation may need to consider orthopedic surgery evaluation. 2. Questionable orthostatic hypotension: Noted low blood pressures, not specifically performed with orthostatic vital signs nor upon ED presentation, BP in the ED appropriate, recent admission with alteration of regimen to amiodarone 200 mg twice daily as well as addition of metoprolol 25 mg twice daily with prior to this having been on flecainide which was discontinued, continue to closely monitor, orthostatic vital signs requested, BP hold parameters, if notable would consider discontinuation of metoprolol with plan for discussion with cardiology, Dr. Blanton if this is the case. 3. PAF: Recent admission for atrial for ablation with RVR with failed cardiov ersion x2, maintained on Eliquis, recent admission with discontinuation of flecainide and transition to amiodarone 200 mg twice daily as well as metoprolol 25 mg twice daily with possible need for further regimen changes given #2, echocardiogram with EF 45%. 4. Chronic COPD with chronic hypoxic respiratory failure: Will maintain on home oxygen supplementation, continue ATC duonebs, PRN albuterol, HOB, IS parameters. 5. Anxiety and depression: Continue home Wellbutrin regimen. 6. Tobacco Abuse: Encouraged cessation, inpatient consultation per RT, NR if desired. 7. GERD: Continue home Zantac regimen. 8. Vitamin D deficiency: Recent evaluation, discharge recently on supplementation with recommendation to for repeat vitamin D level in 3 months. 9. Severe protein calorie malnutrition: Evidenced by habitus, BMI, obvious muscle and fat loss, likely secondary to chronic comorbidities, nutrition consulted. 10. DVT prophylaxis: SCDs, continue home Eliquis regimen. 11. CODE status: present and is healthcare power of attorney law clerk, living will in place. Discussed CODE status at length including difference between FULL code, DNR-CCA and DNR-CC status. Following discussions about the differences in these status, requested full CODE STATUS with noted intention that is more aggressive interventions beyond only transient needs would likely transition to DNR. Advanced Care Planning Face to Face Time: 16 minutes. Code Visit Inpatient E&M: 15385 Init Hosp L3 Procedures: 63647 Advncd Care Plan 30 Min
--- NOTE | 2018-10-20 15:40 | CASEMGMT ---
Social Work Note SW received call from Radha with TCU stating she will submit for pre-cert tomorrow as she needs PT/OT notes. Plan: TCU pending pre-cert Mary Lundy MSW, INSURANCE FOLLOW UP REP
[2018-10-20 15:46] LABS: Magnesium 2.1 mg/dL (1.6-2.6)
[2018-10-20] MEDS: Ipratropium/Albuterol Sulfate 3 ML AMPUL.NEB INHALATION (18:38)
[2018-10-20] MEDS: Acetaminophen 325 MG Tablet 650 MG PO (19:43)
[2018-10-20] MEDS: 0.9% NaCl Peripheral Flush Adult/Peds IV ×2 (19:48→22:07)
[2018-10-20] MEDS: 0.9% Normal Saline 1,000 ML 75 ML IV (21:06)
[2018-10-20] MEDS: APIXABAN 5 MG TABLET PO (22:05)
[2018-10-21] VITALS (13 sets, daily range): BP systolic 99–157; BP diastolic 50–98; PULSE 52–73; RESP 16–18; TEMP 36.3–36.4; O2SAT 92–97
[2018-10-21] MEDS: 0.9% Normal Saline 1,000 ML 75 ML IV (04:57)
[2018-10-21] MEDS: Acetaminophen 325 MG Tablet 650 MG PO (04:58)
[2018-10-21 06:05] LABS: Absolute Lymphocyte Count 1.98 X10^3/uL (0.83-4.51); Basophil# 0.04 X10^3/uL; Basophil% 0.5 % (0-1); Eosinophil# 0.41 X10^3/uL; Hemoglobin 13.1 g/dL (13.0-16.5); Lymphocyte # 1.98 X10^3/ul (4.0); Lymphocyte % 24.1 % (19-41); Mean Corpuscular Hgb 33.5 pg (27.0-32.0); Mean Corpuscular Volume 104.9 fL (80-94); Mean Platelet Vol. 10.9 fl (6.2-12.0); Monocyte# 0.81 X10^3/uL; Monocyte% 9.8 % (0-10); NRBC Flagged by Analyzer 0 % (0-5); Neutrophil # 4.95 X10^3/uL (2.7-7.7); Neutrophil % 60.1 % (47-70); Platelet Count 309 K/mm3 (150-450); RBC Distribution Width CV 13.2 % (11.6-14.6); RBC Distribution Width SD 50.3 fl (35.1-43.9); Red Blood Count 3.91 M/mm3 (4.6-6.2); White Blood Count 8.2 K/mm3 (4.4-11.0)
[2018-10-21 06:20] LABS: Anion Gap 6 (5-15); BUN 18 mg/dL (7-18); BUN/Creat Ratio 15.1 RATIO (10-20); Calcium,Total 8.2 mg/dL (8.5-10.1); Chloride 113 mmol/L (98-107); Creatinine, Serum 1.19 mg/dL (0.70-1.30); EST Glomerular Filtration Rate 64 mL/min (>60); Est Glom Filt Rate - Afr Amer 77 mL/min (>60); Estimated Creatinine Clearance 52.38 ml/min; Glucose 73 mg/dL (74-106); Potassium 4.4 mmol/L (3.5-5.1); Sodium Level 144 mmol/L (136-145)
[2018-10-21] MEDS: Ipratropium/Albuterol Sulfate 3 ML AMPUL.NEB INHALATION (07:02)
--- NOTE | 2018-10-21 08:45 | PN_ITS ---
Patient Problems: Active and Suspected Problems Right shoulder pain (Acute) Failure to thrive (Acute) Subjective: The patient is a 73-year-old male with a past medical history of paroxysmal atrial fibrillation, anxiety/depression, chronic back pain, COPD with chronic hypoxic respiratory failure, GERD, severe protein calorie malnutrition who presented to the emergency department at [facility] on 10/20/2018 complaining of severe right shoulder and right side back pain. He had recently been admitted to the hospital from 10/12/2018 04/04/2018 and treated for acute atrial fibrillation with rapid ventricular response resulting in a fall with right shoulder and right back pain. He had been mostly bedbound since discharge from the hospital. He complained of lightheadedness with position changes. EMS noted an initial systolic blood pressure of 90. Vital signs at presentation to the emergency department were temperature 97.5, pulse rate 78, blood pressure 108/75, respiratory rate 18 and he was 92% saturated on room air. CBC showed an elevated white blood cell count at 11.4 with 70% neutrophils. Hemoglobin was 15.4 and the platelet count was 331,000. BUN was 19 with a creatinine of 1.21 which is within his baseline. LFTs were unremarkable. He was admitted to the hospital with a diagnosis of intractable R shoulder and back pain with inability to care for himself. Consults with PT/OT and CM ordered. Orthostatics are negative today. Afebrile. Heart rate while sleeping is in the 50-60 range and while awake is in the 70s. Blood pressures are within normal limits. White blood cell count is normal at 8.2 today and the increase at admission was most likely secondary to stress/pain. Hemoglobin is 13.1 following hydration. BMP is unremarkable. 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 - Physical Exam Vital Signs Temp Pulse Resp BP Pulse Ox 97.4 F L 73 16 104/64 94 10/21/18 08:31 10/21/18 08:31 10/21/18 08:31 10/21/18 08:31 10/21/18 08:31 Oxygen Flow Rate (L/min) 2 Oxygen Delivery Method Nasal Cannula Weight: 145 lb 8.081 oz Body Mass Index (BMI) 19.7 Orthostatic Vital Signs Start: 10/21/18 04:06 Freq: q24h Status: Active Protocol: Activity Type Activity Date Activity User E-Sign Co-Sign Detail Recorded Client Recorded Date Recorded By Document 10/21/18 04:59 [facility] [id number] 10/21/18 05:16 [facility] 10/21/18 04:59 Orthostatic Vitals Standing -Blood Pressure (90/60-120/80 mm Hg) 112/50 L -Extremity Use Right Arm -Pulse Rate (60-100 beats/min) 56 L Sitting -Blood Pressure (90/60-120/80 mm Hg) 99/69 -Extremity Use Right Arm -Pulse Rate (60-100 beats/min) 52 L Lying -Blood Pressure (90/60-120/80 mm Hg) 116/75 -Extremity Use Right Arm -Pulse Rate (60-100 beats/min) 57 L Intake and Output for Last 24 Hours 10/19/18 10/20/18 10/21/18 23:59 23:59 23:59 Intake Total 1999 / 2316.5 812.50 / 812.50 Output Total 320 / 320 400 / 400 Balance 1680 / 1997.5 412.50 / 412.50 Laboratory Tests Past 24 Hrs 10/20/18 10/20/18 10/20/18 11:00 11:00 11:00 WBC 11.4 H RBC 4.38 L Hgb 15.4 Hct 45.4 MCV 103.7 H MCH 35.2 H MCHC 33.9 RDW Std Deviation 48.7 H RDW Coeff of Elizabeth 12.7 Plt Count 331 MPV 10.6 Immature Gran % (Auto) 0.500 Neut % (Auto) 69.6 Lymph % (Auto) 17.1 L [place] % (Auto) 9.1 Eos % (Auto) 3.3 Baso % (Auto) 0.4 Absolute Neuts (auto) 7.9 H Absolute Lymphs (auto) 1.95 Nucleated RBC % 0 Sodium 139 Potassium 4.2 Chloride 106 Carbon Dioxide 26.0 Anion Gap 7 BUN 19 H Creatinine 1.21 Estim Creat Clear Calc 51.80 Est GFR (MDRD) Af Amer 76 Est GFR (MDRD) Non-Af 63 BUN/Creatinine Ratio 15.7 Glucose 78 Calcium 8.7 Magnesium 2.1 Total Bilirubin 0.60 AST 17 ALT 13 L Alkaline Phosphatase 135 H Total Protein 7.2 Albumin 2.7 L Globulin 4.5 H Albumin/Globulin Ratio 0.6 L 10/21/18 10/21/18 05:17 05:17 WBC 8.2 RBC 3.91 L Hgb 13.1 Hct 41.0 MCV 104.9 H MCH 33.5 H MCHC 32.0 RDW Std Deviation 50.3 H RDW Coeff of Elizabeth 13.2 Plt Count 309 MPV 10.9 Immature Gran % (Auto) 0.500 Neut % (Auto) 60.1 Lymph % (Auto) 24.1 [place] % (Auto) 9.8 Eos % (Auto) 5.0 Baso % (Auto) 0.5 Absolute Neuts (auto) 5.0 Absolute Lymphs (auto) 1.98 Nucleated RBC % 0 Sodium 144 Potassium 4.4 Chloride 113 H Carbon Dioxide 25.0 Anion Gap 6 BUN 18 Creatinine 1.19 Estim Creat Clear Calc 52.38 Est GFR (MDRD) Af Amer 77 Est GFR (MDRD) Non-Af 64 BUN/Creatinine Ratio 15.1 Glucose 73 L Calcium 8.2 L Magnesium Total Bilirubin AST ALT Alkaline Phosphatase Total Protein Albumin Globulin Albumin/Globulin Ratio Medical Necessity - Tobacco Use Smoking Status: Current every day smoker Tobacco Use: Cigarettes Assessment/Plan All Active Problems Right shoulder pain (Acute) Failure to thrive (Acute) Atrial fibrillation with RVR (Acute)
[2018-10-21] MEDS: oxyCODONE 5 MG Tablet PO (09:02)
--- NOTE | 2018-10-21 10:04 | MRI_ITS ---
STUDY: MRI RIGHT SHOULDER REASON FOR EXAM: Shoulder pain, fall. TECHNIQUE: Standardized fat and water weighted pulse sequences were obtained in all 3 orthogonal planes. COMPARISON: Radiographs 10/12/2018. FINDINGS: There is mild supraspinatus tendinosis (T2 coronal images 9-12) without discrete tendon tear. Normal infraspinatus tendon. There is mild subscapularis tendinosis (proton density axial image 13) without discrete tendon tear. Normal teres minor tendon. Normal supraspinatus muscle. Normal infraspinatus muscle. Normal subscapularis muscle. Normal teres minor muscle. Normal glenohumeral articulation. There is a very mild bone contusion of the glenoid (proton density coronal images 7-9). Normal humeral head and visualized proximal humerus. Normal biceps labral complex. Normal intracapsular long biceps tendon. There is a suspected tear of the posterior aspect of the superior labrum (proton density coronal images 8, 9). Normal capsulo- ligamentous complex. There is acromioclavicular arthrosis with undersurface osteophytes abutting the supraspinatus musculotendinous junction (T2 sagittal images 18, 19). There is a minimally displaced fracture of the distal clavicle (T2 axial image 3). There is a mild sprain of the coracoclavicular ligaments (T2 coronal image 13). There is a bone contusion of the coracoid process (proton density axial images 8-11). There is a Type II morphology (curved), with a neutral orientation. There is a trace subacromial-subdeltoid bursal fluid. Normal visualized coracohumeral and coracoacromial ligaments. Normal deltoid muscle. There is a strain of the distal trapezius muscle (T2 coronal images 11-13). MRI/Upper Ext Joint Only(Routine) IMPRESSION: Mild supraspinatus and subscapularis tendinosis without demonstrated rotator cuff tear. Acromioclavicular arthrosis with undersurface osteophytes. Distal clavicle fracture and bone contusions of the coracoid process and glenoid. Mild sprain of the coracoclavicular ligaments. Suspected tear of the superior labrum. Distal trapezius muscle strain. Electronically Signed: Felipe Long MD at 15:41 EDT Tel , Service support ,
--- NOTE | 2018-10-21 10:19 | CASEMGMT ---
Addendum entered by Mary Lundy 10/21/18 11:47: RN updated this worker that pt informed RN that pt's called [facility] and they informed pt that they wouldn't pay for TCU. SW met with pt. Pt states that his called his insurance and [facility] states the won't pay for Pt's MRI unless he is inpatient. SW spoke with KRISTI KOHLI who states pt is in inpatient status. SW updated pt that he is inpatient status. SW educated pt on referral process to TCU and informed pt that [facility] and [facility] will either approve or deny for pt to go to TCU. SW informed pt that he will remain at [facility] until pre-cert has been received or denial has been received. Pt states understanding. Original Note: Social Work Note Pt's Diana requesting to speak to this worker. Diana asked this worker if the [facility] has been [facility] and pt's status. This worker informed Diana that this worker doesn't notify [facility] but that the CM can speak to her regarding [facility] and pt's status. SW informed Diana that this worker works with getting pt to TCU. SW informed Diana that TCU does have a bed for pt and will submit for pre-cert today. SW informed Diana that pt's insurance usually gets back with pre-cert same day and pt could potentially discharge to TCU today pending pre-cert. Diana states understanding. BENITA updated KRISTI Nuñez regarding Diana's questions. BENITA spoke with Radha with TCU who confirms she is able to accept pt and will submit for pre-cert. Plan: TCU pending pre-cert Mary Lundy APPLICATION SYSTEMS ARCHITECT, MILLER HEAD ASSISTANT WET PROCESS
[2018-10-21] MEDS: Famotidine 20 MG Tablet PO (10:43)
[2018-10-21] MEDS: Amiodarone 200 MG Tablet PO (10:43)
[2018-10-21] MEDS: APIXABAN 5 MG TABLET PO (10:43)
[2018-10-21] MEDS: buPROPion (XL) 300 MG TABLET.XL PO (10:44)
--- NOTE | 2018-10-21 14:20 | NURSING ---
PT TO MRI VIA BED.
[2018-10-21] MEDS: Midodrine HCl 5 MG Tablet 2.5 MG PO (15:49)
[2018-10-21] MEDS: Capsaicin 0.025% 1 APPLIC Tube TOPICAL (15:50)
--- NOTE | 2018-10-21 15:58 | CASEMGMT ---
Social Work Note SW received message from Radha with TCU stating pre-cert has been obtained and pt is able to discharge today. Physician updated. SW updated RN. SW in to update pt on approval to go to TCU. Pt asked this worker to call his Diana. SW placed a call to Diana and updated her on approval to go to TCU and likely discharge today. Plan: TCU today Mary Lundy ROGUER, LICENSED NURSE PRACTITIONER
--- NOTE | 2018-10-21 16:59 | PCM.TXEXTCAR ---
- Diet 10/20/18 15:11 Diet: Regular Food consistency:: Regular Liquid Consistency:: Regular/Thin - Routine Orders/Code Status Enema Type: Fleetz Enema Frequency: Daily PRN Suppository Type: Dulcolax 10mg Suppository Frequency: Daily PRN O2 Liters per Minute: 1-2 O2 Frequency: PRN Keep PO Greater than or Equal to (%): 88 Code Status: Full Code - Wound(s) R [place] Wound Type: Abrasion bilat shins Wound Type: scratches from prior itching rt eyebrow Wound Type: Laceration - Therapies Weight Bearing: Full weight bearing Extremity Affected:: Right Upper - he has a fractured clavicle, bone contusion of the coracoid and the glenoid and a probable labral tear Physical Therapy: Eval and Treat Occupational Therapy: Eval and Treat - Problem/Diagnosis (1) Closed right clavicular fracture Status: Acute Current Visit: Yes (2) Contusion of bone Status: Acute Comment: R coracoid and Glenoid Current Visit: Yes (3) Labral tear of shoulder Status: Suspected Current Visit: Yes (4) Trapezius muscle strain Status: Acute Current Visit: Yes (5) Tendinosis of right shoulder Status: Acute Comment: Right supraspinatus and subscapularis Current Visit: Yes (6) Severe malnutrition Status: Chronic Current Visit: Yes (7) Chronic respiratory failure with hypoxia Status: Chronic Current Visit: Yes (8) GERD (gastroesophageal reflux disease) Status: Chronic Current Visit: No (9) COPD (chronic obstructive pulmonary disease) Status: Chronic Current Visit: No (10) Atrial fibrillation with RVR Status: Resolved Current Visit: No (11) PAF (paroxysmal atrial fibrillation) Status: Chronic Current Visit: No (12) Chronic back pain Status: Chronic Current Visit: No (13) Depression with anxiety Status: Chronic Current Visit: No (14) Tobacco dependence Status: Chronic Current Visit: No - Allergies/Procedures Done in Hospital Allergies/Adverse Reactions: Allergies varenicline tartrate [From Chantix] Adverse Reaction (Verified 10/20/18 15:24) dizziness Procedures: - - MRI right shoulder - Type of Care/Length of Stay Estimated LOS: Convalescent Care Less Than 30 days Type of Care Needed: Skilled Rehab Potential: Good Prognosis: Good - Additional Orders/Day of Discharge Additional Orders: He will need to follow up with Dr. Elmore for the R should pain and possible superior labrum tear H&P will serve as current which was dated: 10/20/18 Day of Discharge: 10/21/18 - Dietary and Speech Recommendations Dietitian Recommendations/Changes: Rec diet change to liberal Regular d/t s/s of malnutrition - Follow Up Care [facility] [Primary [facility]] - Please follow up with your Primary Care Physician in: as previously arranged Please Follow Up With: Chin Elmore, DO When: within the next 7-10 days
--- NOTE | 2018-10-21 17:11 | PCM.DC.SUM ---
Discharge Date and Diagnosis Date of Admission: 10/20/18 Date of Discharge: 10/21/18 - Primary Discharge Diagnosis Active and Suspected Problems Intractable R shoulder pain after a fall Closed right clavicular fracture (Acute) Contusion of bone (Acute) R coracoid and Glenoid Labral tear of shoulder (Suspected) superior labrum Trapezius muscle strain (Acute) Tendinosis of right shoulder (Acute) Right supraspinatus and subscapularis - Secondary Discharge Diagnosis Chronic Problems Severe malnutrition (Chronic) Chronic respiratory failure with hypoxia (Chronic) GERD (gastroesophageal reflux disease) (Chronic) PAF (paroxysmal atrial fibrillation) (Chronic) Chronic back pain (Chronic) Depression with anxiety (Chronic) COPD (chronic obstructive pulmonary disease) (Chronic) Tobacco dependence (Chronic) Orthostatic hypotension Hospital Course and Treatment Imaging Results: 10/21/18 10:04 Upper Ext Joint Only(Routine) [MRI] Urgent Clinical Impression(s) from Imaging Studies Chest X-Ray 10/20/18 11:11 IMPRESSION: Findings suggestive of progressive interstitial scarring worse in the left hemithorax. Electronically Signed: Sánchez Mott, at 11:30 EDT , Service support , Upper Extremity MRI 10/21/18 10:04 IMPRESSION: Mild supraspinatus and subscapularis tendinosis without demonstrated rotator cuff tear. Acromioclavicular arthrosis with undersurface osteophytes. Distal clavicle fracture and bone contusions of the coracoid process and glenoid. Mild sprain of the coracoclavicular ligaments. Suspected tear of the superior labrum. Distal trapezius muscle strain. Electronically Signed: Felipe Long MD at 15:41 EDT Tel , Service support , Laboratory Results - last 24 hr 10/21/18 10/21/18 05:17 05:17 WBC 8.2 RBC 3.91 L Hgb 13.1 Hct 41.0 MCV 104.9 H MCH 33.5 H MCHC 32.0 RDW Std Deviation 50.3 H RDW Coeff of [place] 13.2 Plt Count 309 MPV 10.9 Immature Gran % (Auto) 0.500 Neut % (Auto) 60.1 Lymph % (Auto) 24.1 [place] % (Auto) 9.8 Eos % (Auto) 5.0 Baso % (Auto) 0.5 Absolute Neuts (auto) 5.0 Absolute Lymphs (auto) 1.98 Nucleated RBC % 0 Sodium 144 Potassium 4.4 Chloride 113 H Carbon Dioxide 25.0 Anion Gap 6 BUN 18 Creatinine 1.19 Estim Creat Clear Calc 52.38 Est GFR (MDRD) Af Amer 77 Est GFR (MDRD) Non-Af 64 BUN/Creatinine Ratio 15.1 Glucose 73 L Calcium 8.2 L none Operations: None Procedures: None Summary of Care Provided: The patient is a 73-year-old male with a past medical history of paroxysmal atrial fibrillation, anxiety/depression, chronic back pain, COPD with chronic hypoxic respiratory failure, GERD, severe protein calorie malnutrition who presented to the emergency department at [facility] on 10/20/2018 complaining of severe right shoulder and right side back pain. He had recently been admitted to the hospital from 10/12/2018 04/04/2018 and treated for acute atrial fibrillation with rapid ventricular response resulting in a fall with right shoulder and right back pain. He had been mostly bedbound since discharge from the hospital. He complained of lightheadedness with position changes. EMS noted an initial systolic blood pressure of 90. Vital signs at presentation to the emergency department were temperature 97.5, pulse rate 78, blood pressure 108/75, respiratory rate 18 and he was 92% saturated on room air. CBC showed an elevated white blood cell count at 11.4 with 70% neutrophils. Hemoglobin was 15.4 and the platelet count was 331,000. BUN was 19 with a creatinine of 1.21 which is within his baseline. LFTs were unremarkable. He was admitted to the hospital with a diagnosis of intractable R shoulder and R upper back pain with inability to care for himself. An MRI of the R shoulder was obtained and showed a R distal clavicle fracture, bone contusion of the glenoid and coracoid process, suspected superior labrum tear, right supraspinatus and subscapularis tendinosis and distal trapezius strain. He was placed in a clavicle brace/strap and The pain was much improved. He was discharged to TCU for PT/OT prior to returning home. He will follow up with Dr. Elmore in 7-10 days. PHYSICAL EXAM: GENERAL: alert, oriented X 3, Cooperative, he is in significant pain and is very hesitant to move his R arm at all.....any attempt to move it causes wincing. He has weakness in the external rotators of the R shoulder. there is bruising in the R supraclavicular fossa. There is marked R trapezius spasm. ORAL: moist mucosa, no mucosal lesions NECK: No JVD, supple, trachea midline LUNGS: CTA, symmetric chest expansion, diminished HEART: RRR, Normal S1 and S2, no rub, no gallop ABDOMEN: soft, NT, ND, BS present, no guarding with palpation EXTREMITIES: no edema, no cyanosis, no calf tenderness SKIN: No rashes, no breakdown NEUROLOGIC: no focal neurologic deficits PSYCH: appropriate, normal affect, pleasant This note was generated with [email or web address] dictation software. It may contain incorrect words, spelling, and punctuation that were not noted in checking the note before signing. - Physical Exam Vital Signs Temp Pulse Resp BP Pulse Ox 97.4 F L 56 L 18 154/98 H 94 10/21/18 08:31 10/21/18 16:51 10/21/18 08:48 10/21/18 16:51 10/21/18 08:31 Oxygen Flow Rate (L/min) 2 Oxygen Delivery Method Nasal Cannula Weight: 145 lb 8.081 oz Body Mass Index (BMI) 19.7 Orthostatic Vital Signs Start: 10/21/18 04:06 Freq: q24h Status: Active Protocol: Activity Type Activity Date Activity User E-Sign Co-Sign Detail Recorded Client Recorded Date Recorded By Document 10/21/18 16:51 KACEY [id number] 10/21/18 17:05 KACEY 10/21/18 16:51 Orthostatic Vitals Standing -Blood Pressure (90/60-120/80 mm Hg) 99/72 -Extremity Use Right Arm -Pulse Rate (60-100 beats/min) 70 Sitting -Blood Pressure (90/60-120/80 mm Hg) 157/93 H -Pulse Rate (60-100 beats/min) 56 L Lying -Blood Pressure (90/60-120/80 mm Hg) 154/98 H -Extremity Use Right Arm -Pulse Rate (60-100 beats/min) 56 L Intake and Output for Last 24 Hours 10/19/18 10/20/18 10/21/18 23:59 23:59 23:59 Intake Total 1999 / 2316.5 812.50 / 812.50 Output Total 320 / 320 400 / 400 Balance 1680 / 1997.5 412.50 / 412.50 Laboratory Tests Past 24 Hrs 10/21/18 10/21/18 05:17 05:17 WBC 8.2 RBC 3.91 L Hgb 13.1 Hct 41.0 MCV 104.9 H MCH 33.5 H MCHC 32.0 RDW Std Deviation 50.3 H RDW Coeff of Elizabeth 13.2 Plt Count 309 MPV 10.9 Immature Gran % (Auto) 0.500 Neut % (Auto) 60.1 Lymph % (Auto) 24.1 [place] % (Auto) 9.8 Eos % (Auto) 5.0 Baso % (Auto) 0.5 Absolute Neuts (auto) 5.0 Absolute Lymphs (auto) 1.98 Nucleated RBC % 0 Sodium 144 Potassium 4.4 Chloride 113 H Carbon Dioxide 25.0 Anion Gap 6 BUN 18 Creatinine 1.19 Estim Creat Clear Calc 52.38 Est GFR (MDRD) Af Amer 77 Est GFR (MDRD) Non-Af 64 BUN/Creatinine Ratio 15.1 Glucose 73 L Calcium 8.2 L Home Medications: Medications to take at Discharge Apixaban [Eliquis] 5 mg PO BID 06/03/15 Cyclobenzaprine HCl 10 mg PO TID PRN PRN 06/03/15 Ipratropium/Albuterol Respimat [Combivent Respimat Inhal [place]] 1 puff INHALATION 4X/DAY 06/03/15 buPROPion XL [Wellbutrin Xl] 300 mg PO DAILY 06/03/15 Fluticasone 0.05% [Flonase Nasal [place]] 2 spray NASAL DAILY 10/12/18 Amiodarone HCl [Cordarone] 200 mg PO BID #60 tab 10/14/18 Ergocalciferol [Vitamin D] 50,000 unit PO MO 10/20/18 Oxycodone [Oxyir] 5 mg PO Q6H PRN PRN 10/20/18 Sertraline HCl [Zoloft] 150 mg PO DAILY 10/20/18 Acetaminophen [Tylenol Extra Strength] 1,000 mg PO Q8H #1 tab 10/21/18 Capsaicin [Zostrix] 56.6 gm TP TID #1 cream..g. 10/21/18 Famotidine [Pepcid] 20 mg PO DAILY tab 10/21/18 Mag Hydrox/Al Hydrox/Simeth [Mylanta II] 15 - 30 ml PO Q4H PRN PRN udc 10/21/18 Magnesium Hydroxide [Milk Of Magnesia] 30 ml PO DAILY PRN udc 10/21/18 Melatonin 3 mg PO QHS PRN PRN tab 10/21/18 Metoprolol Tartrate [Lopressor (beta zeferino)] 12.5 mg PO BID #60 tab 10/21/18 Midodrine HCl [Proamatine] 2.5 mg PO TID tab 10/21/18 Nitroglycerin (INPATIENT USE) [Nitrostat] 0.4 mg SUBLINGUAL Q5M PRN tab.subl 10/21/18 Following Prescrptions Were Given to Patient: Acetaminophen [Tylenol Extra Strength] 1,000 mg PO Q8H #1 tab Capsaicin [Zostrix] 56.6 gm TP TID #1 cream..g. [facility] [Primary [facility]] - Please follow up with your Primary Care Physician in: as previously arranged Please Follow Up With: Chin Elmore DO When: within the next 7-10 days Disposition: Long-Term facility Minutes spent on discharge:: 40 Patient Condition:: Stable Medical Necessity - Tobacco Use Smoking Status: Current every day smoker Tobacco Use: Cigarettes Meaningful Use Info Meaningful Use Diagnoses (Choose all that apply): None applicable Code Visit Inpatient E&M: 21225 Disch Hosp
== END 2018-10-21 18:09 | disposition skilled nursing facility (03) | DRG 562 ==
LOC: ED 11:02 → MS3 14:07
PROVIDERS: Admitting Provider Family Medicine; Emergency Provider Emergency Medicine; Referring Provider Family Medicine; Visit Provider Internal Medicine
DX: S42.031A Displaced fracture of lateral end of right clavicle, initial encounter for closed fracture (principal); E43 Unspecified severe protein-calorie malnutrition; J96.11 Chronic respiratory failure with hypoxia; Z68.1 Body mass index [BMI] 19.9 or less, adult; S40.011A Contusion of right shoulder, initial encounter; S43.491A Other sprain of right shoulder joint, initial encounter; S29.012A Strain of muscle and tendon of back wall of thorax, initial encounter; W19.XXXA Unspecified fall, initial encounter; I48.0 Paroxysmal atrial fibrillation; Z99.81 Dependence on supplemental oxygen; J44.9 Chronic obstructive pulmonary disease, unspecified; E55.9 Vitamin D deficiency, unspecified; K21.9 Gastro-esophageal reflux disease without esophagitis; I95.1 Orthostatic hypotension; Z79.01 Long term (current) use of anticoagulants; G89.29 Other chronic pain; M54.6 Pain in thoracic spine; F41.8 Other specified anxiety disorders; F17.210 Nicotine dependence, cigarettes, uncomplicated
CPT/HCPCS: 36415; 71046; 73221; 80048; 80053; 83735; 85025; 93005; 94640; 97162; 97166; 97802; 99285; 99406; J7030; J7040; A4216

== ENCOUNTER 2018-10-21 18:14 | Inpatient (IN) | payer MEDICARE, OTHER, SELFPAY ==
[2018-10-20 15:04] VITALS: BMI 19.7
[2018-10-21 18:25] VITALS: PULSE 62; O2SAT 98; BMI 20.1
[2018-10-21 18:43] VITALS: BP 142/82; PULSE 82; RESP 18; TEMP 36; O2SAT 92
--- NOTE | 2018-10-21 20:46 | HP.PCM_ITS ---
Problem List (1) Debility Status: Acute (2) Failure to thrive Status: Acute (3) Right rotator cuff tear Status: Acute (4) Compression fracture of lumbar spine, non-traumatic Status: Chronic (5) Coronary artery disease Status: Chronic (6) Chronic systolic (congestive) heart failure Status: Chronic (7) Hypertension Status: Chronic (8) Syncope Status: Acute (9) Tobacco abuse Status: Chronic (10) Muscle spasm Status: Chronic (11) Depression Status: Chronic (12) Anxiety Status: Chronic (13) Closed right clavicular fracture Status: Acute (14) Atrial fibrillation with RVR Status: Chronic (15) GERD (gastroesophageal reflux disease) Status: Chronic Qualifiers: (16) COPD (chronic obstructive pulmonary disease) Status: Chronic Qualifiers: History of Present Illness Date of Admission: 10/21/18 Chief Complaint: Here for rehabilitation, strengthenig, prior to discharge home with spouse. The patient is a 73 year old Male with below past medical history presented to [facility] Emergency Department 10/20/2018 with hypotension. 10/20/2018 Chest X-ray showed left interstitial scarring. Dizziness, weakness, back pain, chest pain. Right shoulder trauma, back pain secondary to compression fracture. Sitting at home, not ambulating, difficulty getting out of bed. Blood pressure 90/50 in ambulance. 10/20/2018 Admit to Hospital. PT/OT, case management for short term [facility]. Check orthostatic vital signs for hypotension. Atrial fibrillation failed cardioversion x 2, on Eliquis. Flecainide transitioned to Amiodarone, Metoprolol recently. Echo shows EF 45%. 10/21/2018 MRI right shoulder showed rotator cuff tendinopathy. AC joint arthritis. Distal clavicle fracture. Distal trapezius strain. Clavicle brace/strap applied, right shoulder pain improved. Follow up with Dr. Elmore. 10/21/2018 Admit to TCU with debility, here for rehabilitation, strengthening, prior to discharge home with spouse. Past Medical History Past Medical History (Chronic Problems): Chronic Problems Severe malnutrition (Chronic) Chronic respiratory failure with hypoxia (Chronic) Compression fracture of lumbar spine, non-traumatic (Chronic) Coronary artery disease (Chronic) Chronic systolic (congestive) heart failure (Chronic) Hypertension (Chronic) Tobacco abuse (Chronic) Muscle spasm (Chronic) Depression (Chronic) Anxiety (Chronic) Atrial fibrillation with RVR (Chronic) GERD (gastroesophageal reflux disease) (Chronic) PAF (paroxysmal atrial fibrillation) (Chronic) Chronic back pain (Chronic) Depression with anxiety (Chronic) COPD (chronic obstructive pulmonary disease) (Chronic) Tobacco dependence (Chronic) Allergies varenicline tartrate [From Chantix] Adverse Reaction (Verified 10/20/18 15:24) dizziness Home Medications: Ambulatory Orders Medication Instructions Recorded Apixaban [Eliquis] 5 mg PO BID 06/03/15 Cyclobenzaprine HCl 10 mg PO TID PRN PRN 06/03/15 Ipratropium/Albuterol Respimat 1 puff INHALATION 4X/DAY 06/03/15 [Combivent Respimat Inhal [place]] buPROPion XL [Wellbutrin Xl] 300 mg PO DAILY 06/03/15 Fluticasone 0.05% [Flonase Nasal 2 spray NASAL DAILY 10/12/18 [place]] Ergocalciferol [Vitamin D] 50,000 unit PO MO 10/20/18 Oxycodone [Oxyir] 5 mg PO Q6H PRN PRN 10/20/18 Sertraline HCl [Zoloft] 150 mg PO DAILY 10/20/18 Acetaminophen [Tylenol Extra 1,000 mg PO Q8H 10/21/18 Strength] Amiodarone HCl [Cordarone] 200 mg PO BID 10/21/18 Capsaicin [Zostrix] 56.6 gm TP TID 10/21/18 Famotidine [Pepcid] 20 mg PO DAILY 10/21/18 Mag Hydrox/Al Hydrox/Simeth 15 - 30 ml PO Q4H PRN PRN udc 10/21/18 [Mylanta II] Magnesium Hydroxide [Milk Of 30 ml PO DAILY PRN udc 10/21/18 Magnesia] Melatonin 3 mg PO QHS PRN PRN tab 10/21/18 Metoprolol Tartrate [Lopressor 12.5 mg PO BID 10/21/18 (beta zeferino)] Midodrine HCl [Proamatine] 2.5 mg PO TID 10/21/18 Nitroglycerin (INPATIENT USE) 0.4 mg SUBLINGUAL Q5M PRN tab.subl 10/21/18 [Nitrostat] Surgical History: tonsillectomy, - - Vagotomy. Psychiatric History: Anxiety, Depression Lives: Spouse/ Significant Other Smoking Status: Current every day smoker Tobacco Use: Cigarettes Alcohol: None Drugs: None - *Family History Paternal History Items: Heart Disease, Hypertension, - - Father passed at age 47 due to [place]. Maternal History Items: Hypertension, - - Polio Review of Systems Constitutional: Denies: Chills, Fever, Weight Change HEENT: Denies: Head Aches, Sinus Congestion, Sinus Drainage Cardiovascular: Denies: Chest Pain, Palpitations Respiratory: Denies: Cough, Shortness of breath at rest, Sputum production Gastrointestinal: Denies: Abdominal Pain, Nausea, Vomiting Genitourinary: Denies: Dysuria Musculoskeletal: Denies: Joint Pain, Joint Tenderness Skin: Denies: Rash, Wounds Neurological: Denies: Numbness, Tingling, Focal weakness Psychiatric: Denies: Anxiety, Depression, Homicidal Ideations, Suicidal Ideations Hematologic/ Lymphatic: Denies: Easy Bruising, Easy Bleeding VTE Information - Inpt Only VTE Present on Admission: No VTE Mechan Device Prophylaxis: Knee High PAMELA Hose VTE Pharm Prophylaxis ordered?: No Reason prophylaxis not ordered:: Treatment Not Indicated Patient Problems: Active and Suspected Problems Debility (Acute) Failure to thrive (Acute) Right rotator cuff tear (Acute) Syncope (Acute) - Physical Exam General: Alert, Oriented x3, Cooperative HEENT: Atraumatic, PERRLA, EOMI, Normocephalic Neck: Supple, No JVD, Negative Carotid Bruits Lungs: Clear to auscultation, Normal air movement Cardiovascular: Regular rate, No murmurs Abdomen: Bowel Sounds Present, Soft, Non Tender Extremities: No edema, Capillary Refill Less than 3 Seconds, - - Right shoulder brace. Skin: No rashes, No breakdown Musculoskeletal: No Tenderness to Palpation of Joints or Extremities Neurological: Cranial nerves II-XII grossly intact Psych/Mental Status: Normal Affect, Appropriate Vital Signs Temp Pulse Resp BP Pulse Ox 96.8 F L 82 18 142/82 H 92 10/21/18 18:43 10/21/18 18:43 10/21/18 18:43 10/21/18 18:43 10/21/18 18:43 Oxygen Delivery Method Room Air Body Mass Index (BMI) 19.7 Assessment/Plan All Active Problems Closed right clavicular fracture (Acute) Contusion of bone (Acute) Trapezius muscle strain (Acute) Tendinosis of right shoulder (Acute) Debility (Acute) Failure to thrive (Acute) Right rotator cuff tear (Acute) Syncope (Acute) 73 year old male with below past medical history hospitalized for debility, unable to care for self, secondary to right rotator cuff tendinopathy, compression fracture of lumbar spine, admitted to TCU with debility, here for rehabilitation, strengthening, prior to discharge home with spouse. * Debility - PT/OT. * Pain - Tylenol 1000MG Q8H, Capsaicin 0.025% topical TID, Oxycodone 5MG Q6H PRN moderate pain. * Bowel - Miralax 17GM daily, Senna/colace 2 tablets BID, Dulcolax 10MG daily PRN. * Pneumonia vaccination - Administer Prevnar 13 and/or Pneumovax 23 as necessary. * DVT prophylaxis - Not necessary, already on Apixaban. * COPD - Incruse 1 puff daily, Ventolin 1 puff 4x/day. * Atrial fibrillation - Metoprolol 12.5MG BID, Amiodarone 200MG BID, Eliquis 5MG BID, Dr. Blanton. * Depression - Sertraline 150MG daily, Bupropion XL 300MG daily. * Muscle spasm - Flexeril 10MG TID PRN. * Vitamin D deficiency - D2 50,000 units once per week. * GERD - Famotidine 40MG daily, Mylanta II 15-30ML Q4H PRN. * Allergic Rhinitis - Flonase 2 spray nasal daily. * Insomnia - Melatonin 3MG QHS PRN. * Orthostatic hypotension - Midodrine 2.5MG TID, monitor for supine hypertension. * Coronary Artery Disease - Metoprolol 12.5MG BID, NTG 0.4MG SL Q5M PRN. * Tobacco Abuse - Bupropion XL 300MG daily. * Right rotator cuff tendinopathy - clavicle brace/strap, Dr. Elmore.
[2018-10-21] MEDS: Midodrine HCl 5 MG Tablet 2.5 MG PO (21:51)
[2018-10-21] MEDS: Acetaminophen 500 MG Tablet 1000 MG PO (21:56)
[2018-10-21] MEDS: Capsaicin 0.025% 1 APPLIC Tube TOPICAL (21:58)
[2018-10-21 22:12] VITALS: BMI 20.1
[2018-10-21 23:08] VITALS: PULSE 62; RESP 18; O2SAT 98
[2018-10-22] MEDS: Fluticasone 0.05% 1 SPRAY NASAL.SRY 2 SPRAY NASAL (05:35)
[2018-10-22] MEDS: APIXABAN 5 MG TABLET PO ×2 (05:37→17:41)
[2018-10-22] MEDS: Amiodarone 200 MG Tablet PO (05:38)
[2018-10-22] MEDS: Midodrine HCl 5 MG Tablet 2.5 MG PO ×3 (05:38→20:29)
[2018-10-22] MEDS: Acetaminophen 500 MG Tablet 1000 MG PO ×3 (05:38→20:30)
[2018-10-22] MEDS: Famotidine 20 MG Tablet 40 MG PO (05:40)
[2018-10-22 05:41] VITALS: BP 118/76; PULSE 61
[2018-10-22] MEDS: Metoprolol Tartrate 25 MG Tablet 12.5 MG PO (05:41)
[2018-10-22] MEDS: Sertraline 100 MG Tablet 150 MG PO (05:42)
[2018-10-22] MEDS: Senna/Docusate Sodium 1 Tablet 2 TABLET PO ×2 (05:44→17:42)
[2018-10-22 05:53] LABS: Absolute Lymphocyte Count 1.43 X10^3/uL (0.83-4.51); Absolute Neutrophil Count 6.3 X10^3/uL (2.0-7.7); Basophil# 0.06 X10^3/uL; Basophil% 0.7 % (0-1); Eosinophil# 0.35 X10^3/uL; Eosinophils% 3.9 % (0-5); Hematocrit 38.5 % (40-54); Hemoglobin 12.4 g/dL (13.0-16.5); Lymphocyte # 1.43 X10^3/ul (4.0); Lymphocyte % 15.9 % (19-41); Mean Corp Hgb Conc 32.2 g/dL (32-36); Mean Corpuscular Hgb 33.5 pg (27.0-32.0); Mean Corpuscular Volume 104.1 fL (80-94); Mean Platelet Vol. 10.8 fl (6.2-12.0); Monocyte# 0.82 X10^3/uL; Monocyte% 9.1 % (0-10); NRBC Flagged by Analyzer 0 % (0-5); Neutrophil # 6.31 X10^3/uL (2.7-7.7); Platelet Count 338 K/mm3 (150-450); RBC Distribution Width CV 12.8 % (11.6-14.6); RBC Distribution Width SD 49.4 fl (35.1-43.9)
[2018-10-22] MEDS: Capsaicin 0.025% 1 APPLIC Tube TOPICAL ×2 (05:58→20:33)
[2018-10-22 06:18] LABS: Anion Gap 7 (5-15); BUN 16 mg/dL (7-18); BUN/Creat Ratio 14.8 RATIO (10-20); Calcium,Total 8.2 mg/dL (8.5-10.1); Chloride 113 mmol/L (98-107); Creatinine, Serum 1.08 mg/dL (0.70-1.30); EST Glomerular Filtration Rate 71 mL/min (>60); Est Glom Filt Rate - Afr Amer 86 mL/min (>60); Glucose 88 mg/dL (74-106); Potassium 4.4 mmol/L (3.5-5.1); Sodium Level 143 mmol/L (136-145)
[2018-10-22] MEDS: oxyCODONE 5 MG Tablet PO (07:57)
[2018-10-22] MEDS: Tuberculin,Purif.prot.deriv. 50 TU/ML Vial 5 ML ID (10:36)
--- NOTE | 2018-10-22 13:50 | PHA.CONS_ITS ---
<OscargiovanyAdrianna - Last Filed: 10/22/18 13:50> Progress Note - Pharmacy Subjective: TCU Admission Objective: Allergies varenicline tartrate [From Chant[facility]] Adverse Reaction (Verified 10/20/18 15:24) dizziness Current Medications Generic Name Dose Route Start Last Admin Trade Name Freq PRN Reason Stop Dose Admin Acetaminophen 1,000 mg 10/21/18 22:00 10/22/18 13:08 Tylenol PO 1,000 mg Q8 KARIN Administration Al Hydroxide/Mg Hydroxide 15 - 30 ml 10/21/18 18:32 Mylanta Ii PO Q4H PRN PRN INDIGESTION Albuterol Sulfate 1 puff 10/21/18 22:00 10/22/18 11:43 Ventolin Hfa (Sp) INHALATION 1 puff 4X/DAY [facility] Administration Amiodarone HCl 200 mg 10/22/18 06:00 10/22/18 05:38 Cordarone PO 200 mg BID [facility] Administration Apixaban 5 mg 10/22/18 06:00 10/22/18 05:37 Eliquis PO 5 mg BID [facility] Administration Bisacodyl 10 mg 10/21/18 21:09 Dulcolax PO DAILY PRN Constipation Bupropion HCl 300 mg 10/22/18 06:00 10/22/18 05:42 Wellbutrin Xl PO Not Given DAILY [facility] Capsaicin 1 applic 10/21/18 22:00 10/22/18 13:08 Zostrix TOPICAL Not Given TID [facility] Cyclobenzaprine HCl 10 mg 10/21/18 18:32 Flexeril PO TID PRN PRN MUSCLE SPASM Ergocalciferol 50,000 unit 10/27/18 10:00 Vitamin D PO Mo@1000 [facility] Famotidine 40 mg 10/22/18 06:00 10/22/18 05:40 Pepcid PO 40 mg DAILY [facility] Administration Fluticasone Propionate 2 spray 10/22/18 06:00 10/22/18 05:35 Flonase Nasal [place] NASAL 2 puff DAILY [facility] Administration Melatonin 3 mg 10/21/18 18:32 Melatonin PO QHS PRN PRN INSOMNIA Metoprolol Tartrate 12.5 mg 10/22/18 06:00 10/22/18 05:41 Lopressor (Beta Saundra) PO 12.5 mg BID [facility] Administration Midodrine 2.5 mg 10/21/18 22:00 10/22/18 13:09 Proamatine PO 2.5 mg TID KARIN Administration Multi-Ingredient Cream 1 applic 10/22/18 22:00 Eucerin TOPICAL HS [facility] Protocol Nitroglycerin 0.4 mg 10/21/18 18:32 Nitrostat SUBLINGUAL Q5M PRN CARDIAC/CHEST PAIN Oxycodone HCl 5 mg 10/21/18 18:32 10/22/18 07:57 Oxyir PO 5 mg Q6H PRN PRN Administration MODERATE PAIN (4-5/10) Polyethylene Glycol 17 gm 10/22/18 06:00 10/22/18 05:45 Miralax PO Not Given DAILY [facility] Senna/Docusate Sodium 2 tablet 10/22/18 06:00 10/22/18 05:44 Senokot-S, [place]-Colace PO 1 tablet BID KARIN Administration Sertraline HCl 150 mg 10/22/18 06:00 10/22/18 05:42 Zoloft PO 150 mg DAILY KARIN Administration Tuberculin PPD 5 tu 10/29/18 10:00 Tubersol, Aplisol, Ppd ID 10/29/18 10:01 X1 ONE Umeclidinium [place] 1 puff 10/22/18 06:00 10/22/18 05:37 Incruse Ellipta Inhaler IH Not Given DAILY [facility] Problem List Debility (Acute) Failure to thrive (Acute) Right rotator cuff tear (Acute) Compression fracture of lumbar spine, non-traumatic (Chronic) Coronary artery disease (Chronic) Chronic systolic (congestive) heart failure (Chronic) Hypertension (Chronic) Syncope (Acute) Tobacco abuse (Chronic) Muscle spasm (Chronic) Depression (Chronic) Anxiety (Chronic) Vital Signs Temp Pulse Resp BP Pulse Ox 96.8 F L 61 18 118/76 98 10/21/18 18:43 10/22/18 05:41 10/21/18 23:08 10/22/18 05:41 10/21/18 23:08 Oxygen Delivery Method Room Air Weight: 67.358 kg Body Mass Index (BMI) 20.1 Sodium 143 mmol/L (136-145) 10/22/18 05:05 Potassium 4.4 mmol/L (3.5-5.1) 10/22/18 05:05 Chloride 113 mmol/L (98-107) H 10/22/18 05:05 Carbon Dioxide 23.0 mmol/L (21.0-32.0) 10/22/18 05:05 7 (5-15) 10/22/18 05:05 BUN 16 mg/dL (7-18) 10/22/18 05:05 1.08 mg/dL (0.70-1.30) 10/22/18 05:05 Est GFR (MDRD) Af Amer 86 mL/min (>60) 10/22/18 05:05 Est GFR (MDRD) Non-Af 71 mL/min (>60) 10/22/18 05:05 14.8 RATIO (10-20) 10/22/18 05:05 Glucose 88 mg/dL (74-106) 10/22/18 05:05 Assessment/Plan: 1. Pain: acetaminophen 1000mg PO Q8H, oxycodone 5mg PO Q6H PRN moderate pain (4-5/10), Capsaicin 0.025% topically TID to R shoulder/trapezius muscle. Please continue to monitor for pain, respiratory depression, and rash/itching. 2. Atrial fibrillation/CAD: metoprolol tartrate 12.5mg PO BID, amiodarone 200mg PO BID, apixaban 5mg PO BID, nitroglycerin 0.4mg SL Q5M PRN cardiac/chest pain. Please continue to monitor electrolytes, renal function, chest pain and signs/symptoms of bleeding. 3. COPD: Ventolin 1 inhalation four times daily, Incruse Ellipta 1 inhalation daily. Please monitor for SOB and tachycardia. 4. GERD: famotidine 40mg PO daily, Mylanta II 15-30 mL Q4H PRN indigestion. Please continue to monitor for indigestion. 5. Orthostatic hypotension: midodrine 2.5mg PO TID. Please continue to monitor BP. 6. Muscle spasm: cyclobenzaprine 10mg PO TID PRN muscle spasm. Please monitor for drowsiness. 7. Insomnia: melatonin 3mg PO QHS PRN insomnia. Please monitor for excessive drowsiness. 8. Vitamin D deficiency: ergocalciferol 50,000 units PO once weekly on Mondays. Please continue to monitor Vitamin D levels annually. 9. Allergic rhinitis: Flonase nasal spray 2 sprays daily. Please monitor for rhinitis. Psychotropic Medications: sertraline 150mg PO daily. Please consider GDR 03/2019. Bupropion XL 300mg PO daily for tobacco cessation, GDR not indicated. Unnecessary Medications: none Bowel Regimen: Miralax 17gm PO daily, senna/docusate 2T PO BID, bisacodyl 10mg PO daily PRN constipation. Please continue to monitor for constipation. Date of Note:: 10/22/18 - Provider Comments Provider responsibility: Provider responsible to enter orders to implement recommendations <Alberto Dee Chi - Last Filed: 10/22/18 16:39> Progress Note - Pharmacy Subjective: [] Objective: Allergies varenicline tartrate [From [employer]] Adverse Reaction (Verified 10/20/18 15:24) dizziness Current Medications Generic Name Dose Route Start Last Admin Trade Name Freq PRN Reason Stop Dose Admin Acetaminophen 1,000 mg 10/21/18 22:00 10/22/18 13:08 Tylenol PO 1,000 mg Q8 KARIN Administration Al Hydroxide/Mg Hydroxide 15 - 30 ml 10/21/18 18:32 Mylanta Ii PO Q4H PRN PRN INDIGESTION Albuterol Sulfate 1 puff 10/21/18 22:00 10/22/18 11:43 Ventolin Hfa (Sp) INHALATION 1 puff 4X/DAY KARIN Administration Amiodarone HCl 200 mg 10/22/18 06:00 10/22/18 05:38 Cordarone PO 200 mg BID KARIN Administration Apixaban 5 mg 10/22/18 06:00 10/22/18 05:37 Eliquis PO 5 mg BID KARIN Administration Bisacodyl 10 mg 10/21/18 21:09 Dulcolax PO DAILY PRN Constipation Bupropion HCl 300 mg 10/22/18 06:00 10/22/18 05:42 Wellbutrin Xl PO Not Given DAILY [facility] Capsaicin 1 applic 10/21/18 22:00 10/22/18 13:08 Zostrix TOPICAL Not Given TID [facility] Cyclobenzaprine HCl 10 mg 10/21/18 18:32 Flexeril PO TID PRN PRN MUSCLE SPASM Ergocalciferol 50,000 unit 10/27/18 10:00 Vitamin D PO Mo@1000 [facility] Famotidine 40 mg 10/22/18 06:00 10/22/18 05:40 Pepcid PO 40 mg DAILY [facility] Administration Fluticasone Propionate 2 spray 10/22/18 06:00 10/22/18 05:35 Flonase Nasal [place] NASAL 2 puff DAILY [facility] Administration Melatonin 3 mg 10/21/18 18:32 Melatonin PO QHS PRN PRN INSOMNIA Metoprolol Tartrate 12.5 mg 10/22/18 06:00 10/22/18 05:41 Lopressor (Beta Saundra) PO 12.5 mg BID [facility] Administration Midodrine 2.5 mg 10/21/18 22:00 10/22/18 13:09 Proamatine PO 2.5 mg TID [facility] Administration Multi-Ingredient Cream 1 applic 10/22/18 22:00 Eucerin TOPICAL HS [facility] Protocol Nitroglycerin 0.4 mg 10/21/18 18:32 Nitrostat SUBLINGUAL Q5M PRN CARDIAC/CHEST PAIN Oxycodone HCl 5 mg 10/21/18 18:32 10/22/18 07:57 Oxyir PO 5 mg Q6H PRN PRN Administration MODERATE PAIN (4-5/10) Polyethylene Glycol 17 gm 10/22/18 06:00 10/22/18 05:45 Miralax PO Not Given DAILY [facility] Senna/Docusate Sodium 2 tablet 10/22/18 06:00 10/22/18 05:44 Senokot-S, Magalie-Colace PO 1 tablet BID [facility] Administration Sertraline HCl 150 mg 10/22/18 06:00 10/22/18 05:42 Zoloft PO 150 mg DAILY [facility] Administration Tuberculin PPD 5 tu 10/29/18 10:00 Tubersol, Aplisol, Ppd ID 10/29/18 10:01 X1 ONE Umeclidinium [place] 1 puff 10/22/18 06:00 10/22/18 05:37 Incruse Ellipta Inhaler IH Not Given DAILY [facility] Problem List Debility (Acute) Failure to thrive (Acute) Right rotator cuff tear (Acute) Compression fracture of lumbar spine, non-traumatic (Chronic) Coronary artery disease (Chronic) Chronic systolic (congestive) heart failure (Chronic) Hypertension (Chronic) Syncope (Acute) Tobacco abuse (Chronic) Muscle spasm (Chronic) Depression (Chronic) Anxiety (Chronic) Vital Signs Temp Pulse Resp BP Pulse Ox 97.9 F 48 L 18 113/43 L 93 10/22/18 14:59 10/22/18 14:59 10/22/18 14:59 10/22/18 14:59 10/22/18 14:59 Oxygen Delivery Method Room Air Weight: 67.358 kg Body Mass Index (BMI) 20.1 Sodium 143 mmol/L (136-145) 10/22/18 05:05 Potassium 4.4 mmol/L (3.5-5.1) 10/22/18 05:05 Chloride 113 mmol/L (98-107) H 10/22/18 05:05 Carbon Dioxide 23.0 mmol/L (21.0-32.0) 10/22/18 05:05 7 (5-15) 10/22/18 05:05 BUN 16 mg/dL (7-18) 10/22/18 05:05 1.08 mg/dL (0.70-1.30) 10/22/18 05:05 Est GFR (MDRD) Af Amer 86 mL/min (>60) 10/22/18 05:05 Est GFR (MDRD) Non-Af 71 mL/min (>60) 10/22/18 05:05 14.8 RATIO (10-20) 10/22/18 05:05 Glucose 88 mg/dL (74-106) 10/22/18 05:05 Assessment/Plan: Psychotropic Medications: Unnecessary Medications: Bowel Regimen: - Provider Comments Provider responsibility: Provider responsible to enter orders to implement recommendations Provider Comments to Recommendations by Pharmacy: Agree
[2018-10-22 14:59] VITALS: BP 113/43; PULSE 48; RESP 18; TEMP 36.6; O2SAT 93
--- NOTE | 2018-10-22 16:32 | NURSING ---
PT BP 113/43,HR 48. REPORTED TO KRISTI ALDANA. WILL CONTINUE TO MONITOR.
[2018-10-22 16:50] VITALS: BP 100/62; PULSE 45
[2018-10-22 17:40] VITALS: BP 100/62; PULSE 45
--- NOTE | 2018-10-22 19:35 | CPS ---
was already discussed by [email or web address] pharmacovigilance scientist on 10/20/18 when pt was on ms3
[2018-10-22 20:41] VITALS: PULSE 68; RESP 18
--- NOTE | 2018-10-22 20:48 | NURSING ---
pt requesting haircut at this time. this nurse received $20 madera in envelope for Zeenat rodriguez. envelope placed in med room at this time. Zeenat to be contacted in the am for an opening for a mens cut. RNs aware of envelope.
[2018-10-23] MEDS: APIXABAN 5 MG TABLET PO ×2 (05:29→17:07)
[2018-10-23] MEDS: Fluticasone 0.05% 1 SPRAY NASAL.SRY 2 SPRAY NASAL (05:29)
[2018-10-23] MEDS: Famotidine 20 MG Tablet 40 MG PO (05:30)
[2018-10-23] MEDS: Acetaminophen 500 MG Tablet 1000 MG PO ×3 (05:31→21:08)
[2018-10-23] MEDS: Senna/Docusate Sodium 1 Tablet 2 TABLET PO (05:31)
[2018-10-23] MEDS: Midodrine HCl 5 MG Tablet 2.5 MG PO ×3 (05:31→21:09)
[2018-10-23] MEDS: Sertraline 100 MG Tablet 150 MG PO (05:33)
[2018-10-23 05:41] VITALS: BP 120/72; PULSE 82
[2018-10-23] MEDS: Metoprolol Tartrate 25 MG Tablet 12.5 MG PO ×2 (05:41→17:07)
[2018-10-23] MEDS: Amiodarone 200 MG Tablet PO ×2 (05:42→17:07)
[2018-10-23 06:15] VITALS: O2SAT 96
[2018-10-23] MEDS: oxyCODONE 5 MG Tablet PO (11:34)
[2018-10-23 11:48] VITALS: RESP 16
[2018-10-23] MEDS: Capsaicin 0.025% 1 APPLIC Tube TOPICAL ×2 (14:39→21:06)
[2018-10-23 16:00] VITALS: BP 139/77; PULSE 51; RESP 16; TEMP 36.6; O2SAT 95
[2018-10-23 17:07] VITALS: BP 139/77; PULSE 60
[2018-10-24] MEDS: Acetaminophen 500 MG Tablet 1000 MG PO ×3 (06:02→20:28)
[2018-10-24] MEDS: Famotidine 20 MG Tablet 40 MG PO (06:02)
[2018-10-24 06:03] VITALS: BP 128/70; PULSE 48
[2018-10-24] MEDS: Sertraline 100 MG Tablet 150 MG PO (06:04)
[2018-10-24] MEDS: Midodrine HCl 5 MG Tablet 2.5 MG PO ×3 (06:05→20:29)
[2018-10-24] MEDS: Amiodarone 200 MG Tablet PO (06:05)
[2018-10-24] MEDS: APIXABAN 5 MG TABLET PO ×2 (06:05→18:07)
[2018-10-24] MEDS: Fluticasone 0.05% 1 SPRAY NASAL.SRY 2 SPRAY NASAL (06:06)
[2018-10-24 07:41] VITALS: O2SAT 96
[2018-10-24] MEDS: oxyCODONE 5 MG Tablet PO (08:05)
[2018-10-24] MEDS: Capsaicin 0.025% 1 APPLIC Tube TOPICAL ×2 (10:09→15:40)
[2018-10-24 16:00] VITALS: BP 132/75; PULSE 50; RESP 16; TEMP 36.4; O2SAT 94
[2018-10-24 18:06] VITALS: BP 132/75; PULSE 52
[2018-10-24 21:30] VITALS: PULSE 76; RESP 16; O2SAT 97
[2018-10-25] MEDS: Amiodarone 200 MG Tablet PO ×2 (05:38→17:21)
[2018-10-25] MEDS: Fluticasone 0.05% 1 SPRAY NASAL.SRY 2 SPRAY NASAL (05:38)
[2018-10-25] MEDS: Midodrine HCl 5 MG Tablet 2.5 MG PO ×3 (05:38→20:34)
[2018-10-25] MEDS: Sertraline 100 MG Tablet 150 MG PO (05:39)
[2018-10-25] MEDS: Famotidine 20 MG Tablet 40 MG PO (05:40)
[2018-10-25] MEDS: Acetaminophen 500 MG Tablet 1000 MG PO ×3 (05:40→20:34)
[2018-10-25] MEDS: Senna/Docusate Sodium 1 Tablet 2 TABLET PO (05:40)
[2018-10-25] MEDS: buPROPion (XL) 300 MG TABLET.XL PO (05:40)
[2018-10-25] MEDS: APIXABAN 5 MG TABLET PO ×2 (05:41→17:21)
[2018-10-25 05:55] VITALS: BP 107/73; PULSE 74
[2018-10-25] MEDS: Metoprolol Tartrate 25 MG Tablet 12.5 MG PO ×2 (05:55→17:21)
[2018-10-25 06:58] VITALS: O2SAT 94
--- NOTE | 2018-10-25 11:21 | NURSING ---
Pt refusing ventolin HFA inhaler. States he does not need it and requests it be changed to PRN. RN aware.
[2018-10-25] MEDS: Capsaicin 0.025% 1 APPLIC Tube TOPICAL (13:46)
[2018-10-25 15:46] VITALS: BP 111/55; PULSE 82; RESP 17; TEMP 36.9; O2SAT 93
[2018-10-25 17:21] VITALS: PULSE 72
[2018-10-26] MEDS: Sertraline 100 MG Tablet 150 MG PO (07:08)
[2018-10-26] MEDS: Senna/Docusate Sodium 1 Tablet 2 TABLET PO ×2 (07:08→18:12)
[2018-10-26] MEDS: Acetaminophen 500 MG Tablet 1000 MG PO ×3 (07:08→20:38)
[2018-10-26] MEDS: buPROPion (XL) 300 MG TABLET.XL PO (07:08)
[2018-10-26] MEDS: Famotidine 20 MG Tablet 40 MG PO (07:08)
[2018-10-26] MEDS: APIXABAN 5 MG TABLET PO ×2 (07:09→18:12)
[2018-10-26] MEDS: Fluticasone 0.05% 1 SPRAY NASAL.SRY 2 SPRAY NASAL (07:09)
[2018-10-26] MEDS: Midodrine HCl 5 MG Tablet 2.5 MG PO ×3 (07:10→20:37)
[2018-10-26] MEDS: Amiodarone 200 MG Tablet PO ×2 (07:10→18:12)
[2018-10-26 07:20] VITALS: BP 118/71; PULSE 49
[2018-10-26] MEDS: Umeclidinium Bromide Inhaler 1 PUFF IH (07:22)
[2018-10-26] MEDS: Capsaicin 0.025% 1 APPLIC Tube TOPICAL ×2 (07:24→13:59)
--- NOTE | 2018-10-26 07:41 | NURSING ---
Epifanio pryor d/t HR -49 B-118/71 communicated with 1st shift BOGDAN.
[2018-10-26 09:02] VITALS: O2SAT 96
[2018-10-26] MEDS: oxyCODONE 5 MG Tablet PO ×2 (14:05→22:02)
[2018-10-26 15:46] VITALS: BP 121/62; PULSE 48; RESP 17; TEMP 36.9; O2SAT 94
[2018-10-26 18:12] VITALS: BP 121/62; PULSE 50
[2018-10-27] MEDS: Fluticasone 0.05% 1 SPRAY NASAL.SRY 2 SPRAY NASAL (06:49)
[2018-10-27] MEDS: APIXABAN 5 MG TABLET PO ×2 (06:50→06:59)
[2018-10-27] MEDS: Senna/Docusate Sodium 1 Tablet 2 TABLET PO ×2 (06:50→17:20)
[2018-10-27] MEDS: Sertraline 100 MG Tablet 150 MG PO (06:50)
[2018-10-27] MEDS: Acetaminophen 500 MG Tablet 1000 MG PO ×3 (06:55→20:33)
[2018-10-27] MEDS: Umeclidinium Bromide Inhaler 1 PUFF IH (06:57)
[2018-10-27] MEDS: Amiodarone 200 MG Tablet PO ×2 (06:57→17:20)
[2018-10-27 06:58] VITALS: BP 107/72; PULSE 50
[2018-10-27] MEDS: buPROPion (XL) 300 MG TABLET.XL PO (07:00)
[2018-10-27] MEDS: Famotidine 20 MG Tablet 40 MG PO (07:01)
[2018-10-27] MEDS: Midodrine HCl 5 MG Tablet 2.5 MG PO ×3 (07:02→20:37)
[2018-10-27] MEDS: Capsaicin 0.025% 1 APPLIC Tube TOPICAL ×3 (07:04→20:38)
--- NOTE | 2018-10-27 10:12 | NURSING ---
DR SINGLETON UPDATED ON LOW HR 50'S LAST 2 DAYS. NEW ORDER TO HOLD LOPRESSOR IF HR LESS THAN 60
[2018-10-27 15:30] VITALS: BP 144/80; PULSE 54; RESP 18; TEMP 36.2; O2SAT 94
[2018-10-27 17:19] VITALS: PULSE 54
[2018-10-28] MEDS: Acetaminophen 500 MG Tablet 1000 MG PO ×3 (06:34→21:40)
[2018-10-28] MEDS: Senna/Docusate Sodium 1 Tablet 2 TABLET PO ×2 (06:34→17:49)
[2018-10-28] MEDS: APIXABAN 5 MG TABLET PO ×2 (06:35→17:49)
[2018-10-28] MEDS: Amiodarone 200 MG Tablet PO ×2 (06:35→17:49)
[2018-10-28] MEDS: Famotidine 20 MG Tablet 40 MG PO (06:35)
[2018-10-28] MEDS: buPROPion (XL) 300 MG TABLET.XL PO (06:35)
[2018-10-28] MEDS: Sertraline 100 MG Tablet 150 MG PO (06:35)
[2018-10-28 06:38] VITALS: BP 118/77; PULSE 80
[2018-10-28] MEDS: Metoprolol Tartrate 25 MG Tablet 12.5 MG PO ×2 (06:38→17:49)
[2018-10-28] MEDS: Midodrine HCl 5 MG Tablet 2.5 MG PO ×3 (06:39→21:39)
[2018-10-28] MEDS: Fluticasone 0.05% 1 SPRAY NASAL.SRY 2 SPRAY NASAL (06:42)
[2018-10-28] MEDS: Umeclidinium Bromide Inhaler 1 PUFF IH (06:42)
[2018-10-28 09:00] VITALS: PULSE 86; RESP 18; O2SAT 96
[2018-10-28] MEDS: Capsaicin 0.025% 1 APPLIC Tube TOPICAL ×2 (13:24→21:40)
[2018-10-28 15:04] VITALS: BP 126/94; PULSE 74; RESP 18; TEMP 36.3; O2SAT 94
[2018-10-28 15:05] VITALS: BP 118/83
[2018-10-28 17:49] VITALS: BP 118/83; PULSE 74
--- NOTE | 2018-10-28 18:30 | NURSING ---
PREVNAR-13 GIVEN IN LEFT DELT. PT TOLERATED WELL.
[2018-10-29] VITALS (8 sets, daily range): BP systolic 76–120; BP diastolic 47–93; PULSE 48–68; RESP 16–20; TEMP 36.7; O2SAT 94–95
[2018-10-29 06:07] LABS: Absolute Lymphocyte Count 1.92 X10^3/uL (0.83-4.51); Absolute Neutrophil Count 6.2 X10^3/uL (2.0-7.7); Basophil# 0.08 X10^3/uL; Basophil% 0.8 % (0-1); Eosinophil# 0.32 X10^3/uL; Eosinophils% 3.3 % (0-5); Hemoglobin 14.2 g/dL (13.0-16.5); Lymphocyte # 1.92 X10^3/ul (4.0); Lymphocyte % 19.8 % (19-41); Mean Corp Hgb Conc 32.3 g/dL (32-36); Mean Corpuscular Hgb 34.1 pg (27.0-32.0); Mean Corpuscular Volume 105.5 fL (80-94); Mean Platelet Vol. 10.4 fl (6.2-12.0); Monocyte% 11.4 % (0-10); NRBC Flagged by Analyzer 0 % (0-5); Neutrophil # 6.21 X10^3/uL (2.7-7.7); Neutrophil % 64.2 % (47-70); Platelet Count 414 K/mm3 (150-450); RBC Distribution Width CV 13.3 % (11.6-14.6); Red Blood Count 4.17 M/mm3 (4.6-6.2); White Blood Count 9.7 K/mm3 (4.4-11.0)
[2018-10-29 06:24] LABS: Anion Gap 5 (5-15); BUN 18 mg/dL (7-18); BUN/Creat Ratio 14.5 RATIO (10-20); Calcium,Total 8.7 mg/dL (8.5-10.1); Chloride 112 mmol/L (98-107); Creatinine, Serum 1.24 mg/dL (0.70-1.30); EST Glomerular Filtration Rate 61 mL/min (>60); Est Glom Filt Rate - Afr Amer 74 mL/min (>60); Estimated Creatinine Clearance 49.53 ml/min; Glucose 78 mg/dL (74-106); Potassium 4.6 mmol/L (3.5-5.1); Sodium Level 143 mmol/L (136-145)
[2018-10-29] MEDS: Midodrine HCl 5 MG Tablet 2.5 MG PO ×3 (06:40→20:24)
[2018-10-29] MEDS: Senna/Docusate Sodium 1 Tablet 2 TABLET PO ×2 (06:40→17:54)
[2018-10-29] MEDS: buPROPion (XL) 300 MG TABLET.XL PO (06:40)
[2018-10-29] MEDS: Famotidine 20 MG Tablet 40 MG PO (06:41)
[2018-10-29] MEDS: Acetaminophen 500 MG Tablet 1000 MG PO ×3 (06:41→20:24)
[2018-10-29] MEDS: Amiodarone 200 MG Tablet PO (06:42)
[2018-10-29] MEDS: Sertraline 100 MG Tablet 150 MG PO (06:42)
[2018-10-29] MEDS: APIXABAN 5 MG TABLET PO ×2 (06:42→17:53)
[2018-10-29] MEDS: Fluticasone 0.05% 1 SPRAY NASAL.SRY 2 SPRAY NASAL (06:42)
[2018-10-29] MEDS: Metoprolol Tartrate 25 MG Tablet 12.5 MG PO (06:43)
[2018-10-29] MEDS: Umeclidinium Bromide Inhaler 1 PUFF IH (06:43)
[2018-10-29] MEDS: Capsaicin 0.025% 1 APPLIC Tube TOPICAL (06:44)
--- NOTE | 2018-10-29 09:49 | NURSING ---
THERAPY CALLED THIS NURSE TO THERAPY ROOM DUE TO PT FEELING DIZZY AND BP LOW. VITALS LEFT ARM 76/47, RIGHT ARM 77/49. HR 52, OXYGEN 95% RA. PT TAKEN BACK TO ROOM BY WHEEL CHAIR. REPORTED TO KRISTI ALDANA
--- NOTE | 2018-10-29 11:32 | CASEMGMT ---
Addendum entered by Lorena Pace 10/29/18 14:56: Continued stay approved. Next clinical update due 11/05/18. auth # [id number]. Original Note: Insurance: Continued stay review faxed to [facility]. Auth #[id number]
--- NOTE | 2018-10-29 13:17 | CASEMGMT ---
Social Work IDT met with patient and for care plan meeting. Discussed patient's progress in therapy. Patient is SBA walking over 150ft with cane, SBA completing 10 stairs, mod I for transfers and independent with bed mobility. Patient having BP issues and near syncope episodes. Will continue to monitor to safely return home. made first floor bedroom for pt to return home. Insurance update today - will await outcome. Will continue to follow. BRENDAN VerduzcoW
[2018-10-29] MEDS: Tuberculin,Purif.prot.deriv. 50 TU/ML Vial 5 ML ID (13:47)
--- NOTE | 2018-10-29 15:49 | NURSING ---
discussed updated care plan with pt, answered questions at this time. pt thankful, states no more questions at this time
[2018-10-30] MEDS: Sertraline 100 MG Tablet 150 MG PO (05:27)
[2018-10-30] MEDS: Amiodarone 200 MG Tablet PO (05:28)
[2018-10-30] MEDS: Acetaminophen 500 MG Tablet 1000 MG PO ×3 (05:28→20:33)
[2018-10-30] MEDS: Midodrine HCl 5 MG Tablet 2.5 MG PO ×3 (05:29→20:33)
[2018-10-30] MEDS: Senna/Docusate Sodium 1 Tablet 2 TABLET PO (05:30)
[2018-10-30] MEDS: Famotidine 20 MG Tablet 40 MG PO (05:30)
[2018-10-30] MEDS: APIXABAN 5 MG TABLET PO ×2 (05:30→17:51)
[2018-10-30] MEDS: buPROPion (XL) 300 MG TABLET.XL PO (05:30)
[2018-10-30 05:33] VITALS: BP 106/63; PULSE 55
[2018-10-30] MEDS: Fluticasone 0.05% 1 SPRAY NASAL.SRY 2 SPRAY NASAL (05:34)
[2018-10-30] MEDS: Capsaicin 0.025% 1 APPLIC Tube TOPICAL ×2 (05:35→13:18)
[2018-10-30] MEDS: Umeclidinium Bromide Inhaler 1 PUFF IH (05:36)
[2018-10-30] MEDS: oxyCODONE 5 MG Tablet PO ×2 (09:55→17:54)
--- NOTE | 2018-10-30 10:00 | NURSING ---
Pt refused PAMELA alvarez today.
--- NOTE | 2018-10-30 12:09 | CASEMGMT ---
Addendum entered by Shirin Cervantes 10/31/18 15:34: Therapy/pt requesting rollator for pt at [facility]. Referred to [facility]. Original Note: Social Work Spoke with patient and about discharge plans. Insurance approved with [employer] 11/05. Pt would like to see how change in medications work through the weekend and DC home 11/04. Provided list [facility] - [facility] Referral made for PT/OT/SN. No DME needs. Plan: DC home with 11/04 with [facility] PT/OT/SN. BRENDAN VerduzcoW
[2018-10-30 13:27] VITALS: BP 112/68; PULSE 56; RESP 18; TEMP 36.9; O2SAT 95
[2018-10-30 16:00] VITALS: BP 119/63; PULSE 52; RESP 16; TEMP 36.8; O2SAT 95
[2018-10-30 17:50] VITALS: PULSE 59
--- NOTE | 2018-10-30 19:48 | PCM.DC ---
- Discharge Diagnoses Current Active Problems: Current Active and Chronic Problems Debility (Acute) Failure to thrive (Acute) Right rotator cuff tear (Acute) Compression fracture of lumbar spine, non-traumatic (Chronic) Coronary artery disease (Chronic) Chronic systolic (congestive) heart failure (Chronic) Hypertension (Chronic) Syncope (Acute) Tobacco abuse (Chronic) Muscle spasm (Chronic) Depression (Chronic) Anxiety (Chronic) You will use the following diet at home:: No restrictions, Regular Your food should be the consistency of: Regular Your liquids should be the consistency of: Regular/Thin Discharge Activity: Return to Normal Activity, May Shower, Use Walker May resume sexual activity in: No Restrictions Weight Bearing Status: Weight bearing as tolerated Call your doctor if you observe: Fever of 101 or Higher, Inability to urinate, Inability to have a bowel movement, Shortness of breath, Chest pain, Uncontrolled pain Allergies/Adverse Reactions: Allergies varenicline tartrate [From Chantix] Adverse Reaction (Verified 10/20/18 15:24) dizziness Medications to take at Discharge Apixaban [Eliquis] 5 mg PO BID 06/03/15 Cyclobenzaprine HCl 10 mg PO TID PRN PRN 06/03/15 Ipratropium/Albuterol Respimat [Combivent Respimat Inhal [place]] 1 puff INHALATION 4X/DAY 06/03/15 buPROPion XL [Wellbutrin Xl] 300 mg PO DAILY 06/03/15 Fluticasone 0.05% [Flonase Nasal [place]] 2 spray NASAL DAILY 10/12/18 Ergocalciferol [Vitamin D] 50,000 unit PO MO 10/20/18 Sertraline HCl [Zoloft] 150 mg PO DAILY 10/20/18 Acetaminophen [Tylenol] 1,000 mg PO Q8H 10/21/18 Amiodarone HCl [Cordarone] 200 mg PO BID 10/21/18 Melatonin 3 mg PO QHS PRN PRN tab 10/21/18 Metoprolol Tartrate [Lopressor (beta zeferino)] 12.5 mg PO BID 10/21/18 Nitroglycerin (INPATIENT USE) [Nitrostat] 0.4 mg SUBLINGUAL Q5M PRN tab.subl 10/21/18 Capsaicin [Zostrix] 56.6 gm TP TID #1 cream..g. 10/30/18 Midodrine HCl [Proamatine] 2.5 mg PO TID #45 tab 10/30/18 Mineral Oil/Petrolatum,White [Eucerin] 1 applic TOPICAL HS jar 10/30/18 Oxycodone [Oxyir] 5 mg PO Q6H PRN PRN 7 Days #28 tab 10/30/18 Polyethylene Glycol 3350 [Miralax] 17 gm PO DAILY #30 packet 10/30/18 Senna/Docusate Sodium [Senokot-S] 2 tab PO BID #120 tab 10/30/18 The following prescriptions were given: Polyethylene Glycol 3350 [Miralax] 17 gm PO DAILY #30 packet Transmission Status: Pending to [facility] Oxycodone [Oxyir] 5 mg PO Q6H PRN PRN 7 Days #28 tab PRN Reason: Pain Prescription Printed Midodrine HCl [Proamatine] 2.5 mg PO TID #45 tab Transmission Status: Pending to [facility] Senna/Docusate Sodium [Senokot-S] 2 tab PO BID #120 tab Transmission Status: Pending to [facility] Capsaicin [Zostrix] 56.6 gm TP TID #1 cream..g. Transmission Status: Pending to [facility] Primary Care Physician: [facility] [Primary Care Provider] - Please follow up with your Primary Care Physician in: 1 week. Test Results: Test results from this visit will be discussed in further detail at your follow-up appointment, if applicable. Please Follow Up With: Chin Elmore DO When: 2 weeks. Proposed Discharge Date: 11/04/18
--- NOTE | 2018-10-30 19:50 | PCM.DC.SUM ---
Discharge Date and Diagnosis - Problem List Patient Problems: Active and Suspected Problems Debility (Acute) Failure to thrive (Acute) Right rotator cuff tear (Acute) Syncope (Acute) Date of Admission: 10/21/18 Date of Discharge: 11/04/18 - Primary Discharge Diagnosis Active and Suspected Problems Debility (Acute) Failure to thrive (Acute) Right rotator cuff tear (Acute) Syncope (Acute) - Secondary Discharge Diagnosis Chronic Problems Severe malnutrition (Chronic) Chronic respiratory failure with hypoxia (Chronic) Compression fracture of lumbar spine, non-traumatic (Chronic) Coronary artery disease (Chronic) Chronic systolic (congestive) heart failure (Chronic) Hypertension (Chronic) Tobacco abuse (Chronic) Muscle spasm (Chronic) Depression (Chronic) Anxiety (Chronic) Atrial fibrillation with RVR (Chronic) GERD (gastroesophageal reflux disease) (Chronic) PAF (paroxysmal atrial fibrillation) (Chronic) Chronic back pain (Chronic) Depression with anxiety (Chronic) COPD (chronic obstructive pulmonary disease) (Chronic) Tobacco dependence (Chronic) Hospital Course and Treatment Imaging Results: 10/21/18 18:37 Diet: Regular Diet Food consistency:: Regular Liquid Consistency:: Regular/Thin Is pt able to select menu?: Yes Labs (Last 48 Hours) 10/29/18 10/29/18 05:05 05:05 WBC 9.7 RBC 4.17 L Hgb 14.2 Hct 44.0 MCV 105.5 H MCH 34.1 H MCHC 32.3 RDW Std Deviation 52.0 H RDW Coeff of [place] 13.3 Plt Count 414 MPV 10.4 Immature Gran % (Auto) 0.500 Neut % (Auto) 64.2 Lymph % (Auto) 19.8 [place] % (Auto) 11.4 H Eos % (Auto) 3.3 Baso % (Auto) 0.8 Absolute Neuts (auto) 6.2 Absolute Lymphs (auto) 1.92 Nucleated RBC % 0 Sodium 143 Potassium 4.6 Chloride 112 H Carbon Dioxide 26.0 Anion Gap 5 BUN 18 Creatinine 1.24 Estim Creat Clear Calc 49.53 Est GFR (MDRD) Af Amer 74 Est GFR (MDRD) Non-Af 61 BUN/Creatinine Ratio 14.5 Glucose 78 Calcium 8.7 Operations: None Procedures: None Summary of Care Provided: The patient is a 73 year old Male with below past medical history hospitalized for debility, unable to care for self, secondary to right rotator cuff tendinopathy, compression fracture of lumbar spine, admitted to TCU with debility, here for rehabilitation, strengthening, prior to discharge home with spouse. Midodrine added for orthostatic hypotension. Discharge home with spouse, [facility] for PT/OT/SN. Patient Problems: Active and Suspected Problems Debility (Acute) Failure to thrive (Acute) Right rotator cuff tear (Acute) Syncope (Acute) - Physical Exam Vital Signs Temp Pulse Resp BP Pulse Ox 98.2 F 59 L 16 119/63 95 10/30/18 16:00 10/30/18 17:50 10/30/18 16:00 10/30/18 16:00 10/30/18 16:00 Oxygen Flow Rate (L/min) 2 Oxygen Delivery Method Room Air Weight: 65.034 kg Body Mass Index (BMI) 20.1 Intake and Output for Last 24 Hours 10/28/18 10/29/18 10/30/18 23:59 23:59 23:59 Intake Total 600 / 600 840 / 840 840 / 840 Output Total 400 / 400 Balance 600 / 600 440 / 440 840 / 840 Discharge Diet: No Restrictions Discharge Activity: Return to Normal Activity, May Shower, Use Walker May resume sexual activity in: No Restrictions Weight Bearing Status: Weight bearing as tolerated Call your doctor if you observe: Fever of 101 or Higher, Inability to urinate, Inability to have a bowel movement, Shortness of breath, Chest pain, Uncontrolled pain Home Medications: Medications to take at Discharge Apixaban [Eliquis] 5 mg PO BID 06/03/15 Cyclobenzaprine HCl 10 mg PO TID PRN PRN 06/03/15 Ipratropium/Albuterol Respimat [Combivent Respimat Inhal [place]] 1 puff INHALATION 4X/DAY 06/03/15 buPROPion XL [Wellbutrin Xl] 300 mg PO DAILY 06/03/15 Fluticasone 0.05% [Flonase Nasal [place]] 2 spray NASAL DAILY 10/12/18 Ergocalciferol [Vitamin D] 50,000 unit PO MO 10/20/18 Sertraline HCl [Zoloft] 150 mg PO DAILY 10/20/18 Acetaminophen [Tylenol] 1,000 mg PO Q8H 10/21/18 Amiodarone HCl [Cordarone] 200 mg PO BID 10/21/18 Melatonin 3 mg PO QHS PRN PRN tab 10/21/18 Metoprolol Tartrate [Lopressor (beta zeferino)] 12.5 mg PO BID 10/21/18 Nitroglycerin (INPATIENT USE) [Nitrostat] 0.4 mg SUBLINGUAL Q5M PRN tab.subl 10/21/18 Capsaicin [Zostrix] 56.6 gm TP TID #1 cream..g. 10/30/18 Midodrine HCl [Proamatine] 2.5 mg PO TID #45 tab 10/30/18 Mineral Oil/Petrolatum,White [Eucerin] 1 applic TOPICAL HS jar 10/30/18 Oxycodone [Oxyir] 5 mg PO Q6H PRN PRN 7 Days #28 tab 10/30/18 Polyethylene Glycol 3350 [Miralax] 17 gm PO DAILY #30 packet 10/30/18 Senna/Docusate Sodium [Senokot-S] 2 tab PO BID #120 tab 10/30/18 Following Prescrptions Were Given to Patient: Polyethylene Glycol 3350 [Miralax] 17 gm PO DAILY #30 packet Transmission Status: Pending to [facility] Oxycodone [Oxyir] 5 mg PO Q6H PRN PRN 7 Days #28 tab PRN Reason: Pain Prescription Printed Midodrine HCl [Proamatine] 2.5 mg PO TID #45 tab Transmission Status: Pending to [facility] Senna/Docusate Sodium [Senokot-S] 2 tab PO BID #120 tab Transmission Status: Pending to [facility] Capsaicin [Zostrix] 56.6 gm TP TID #1 cream..g. Transmission Status: Pending to [facility] Physician: [facility] [Primary Care Provider] - Please follow up with your Primary Care Physician in: 1 week. Please Follow Up With: Chin Elmore DO When: 2 weeks. Disposition: Home with Home Health Minutes spent on discharge:: 35 Patient Condition:: Stable Medical Necessity - Tobacco Use Smoking Status: Current every day smoker Tobacco Use: Cigarettes Meaningful Use Info Meaningful Use Diagnoses (Choose all that apply): None applicable
--- NOTE | 2018-10-30 19:52 | PCM.PN.HH ---
Home Health Note - Plan Overview of reason of hospitalization: The patient is a 73 year old Male with below past medical history hospitalized for debility, unable to care for self, secondary to right rotator cuff tendinopathy, compression fracture of lumbar spine, admitted to TCU with debility, here for rehabilitation, strengthening, prior to discharge home with spouse. Midodrine added for orthostatic hypotension. Discharge home with spouse, [facility] for PT/OT/SN. Problems: Patient was seen for Debility (Acute) Failure to thrive (Acute) Right rotator cuff tear (Acute) Compression fracture of lumbar spine, non-traumatic (Chronic) Coronary artery disease (Chronic) Chronic systolic (congestive) heart failure (Chronic) Hypertension (Chronic) Syncope (Acute) Tobacco abuse (Chronic) Muscle spasm (Chronic) Depression (Chronic) Anxiety (Chronic) Complete List of Medical Problems Closed right clavicular fracture (Acute) Contusion of bone (Acute) Trapezius muscle strain (Acute) Tendinosis of right shoulder (Acute) Severe malnutrition (Chronic) Chronic respiratory failure with hypoxia (Chronic) Debility (Acute) Failure to thrive (Acute) Right rotator cuff tear (Acute) Compression fracture of lumbar spine, non-traumatic (Chronic) Coronary artery disease (Chronic) Chronic systolic (congestive) heart failure (Chronic) Hypertension (Chronic) Syncope (Acute) Tobacco abuse (Chronic) Muscle spasm (Chronic) Depression (Chronic) Anxiety (Chronic) Atrial fibrillation with RVR (Chronic) GERD (gastroesophageal reflux disease) (Chronic) PAF (paroxysmal atrial fibrillation) (Chronic) Chronic back pain (Chronic) Depression with anxiety (Chronic) COPD (chronic obstructive pulmonary disease) (Chronic) Tobacco dependence (Chronic) - Requirements and Reasons Disciplines Needed/Ordered: Nursing Home, Physical Therapy Reason for Disciplines: Disease Specific Monitoring/education, Medication Management/Knowledge Deficit, Gait Training, Stair Training, Fall Prevention, Home Safety/Equipment Instruction, Balance and/or Posture Training, Transfer Training Related To: Change in Medical Treatment Plan, Limited/Poor Endurance, Physical Impairments, Intractable Pain, Fall Risk Patient is unable to leave the home: Without Aid of Supportive Devices (crutches, cane, wheelchair, walker), Without the assistance of another person - Additional Disciplines Additional Disciplines Needed/Ordered: Occupational Therapy
[2018-10-31] MEDS: Amiodarone 200 MG Tablet PO (05:12)
[2018-10-31] MEDS: APIXABAN 5 MG TABLET PO ×2 (05:12→17:29)
[2018-10-31] MEDS: Midodrine HCl 5 MG Tablet 2.5 MG PO ×3 (05:13→21:28)
[2018-10-31] MEDS: Famotidine 20 MG Tablet 40 MG PO (05:13)
[2018-10-31] MEDS: Acetaminophen 500 MG Tablet 1000 MG PO ×3 (05:13→21:24)
[2018-10-31 05:14] VITALS: BP 105/64; PULSE 51
[2018-10-31] MEDS: Umeclidinium Bromide Inhaler 1 PUFF IH (05:15)
[2018-10-31] MEDS: Fluticasone 0.05% 1 SPRAY NASAL.SRY 2 SPRAY NASAL (05:15)
[2018-10-31] MEDS: Sertraline 100 MG Tablet 150 MG PO (05:16)
[2018-10-31] MEDS: buPROPion (XL) 300 MG TABLET.XL PO (05:16)
[2018-10-31] MEDS: Capsaicin 0.025% 1 APPLIC Tube TOPICAL ×3 (05:17→21:37)
--- NOTE | 2018-10-31 09:19 | MDS.RN ---
Information for the mds was obtained from review of the clinical record, interview of resident, staff, and direct observation of resident's care.
[2018-10-31 13:00] VITALS: PULSE 53; RESP 18; O2SAT 96
--- NOTE | 2018-10-31 13:39 | MDS.RN ---
Pain interview for malcolm 11/04/18 completed
[2018-10-31 14:59] VITALS: BP 114/75; PULSE 55; RESP 16; TEMP 36.9; O2SAT 94
[2018-10-31 17:28] VITALS: BP 114/75; PULSE 55
[2018-10-31] MEDS: Senna/Docusate Sodium 1 Tablet 2 TABLET PO (17:29)
[2018-10-31] MEDS: oxyCODONE 5 MG Tablet PO (21:36)
[2018-10-31 21:41] VITALS: BP 126/77; PULSE 54
[2018-11-01] MEDS: Sertraline 100 MG Tablet 150 MG PO (06:31)
[2018-11-01] MEDS: APIXABAN 5 MG TABLET PO ×2 (06:31→17:29)
[2018-11-01] MEDS: Amiodarone 200 MG Tablet PO (06:31)
[2018-11-01] MEDS: buPROPion (XL) 300 MG TABLET.XL PO (06:31)
[2018-11-01] MEDS: Senna/Docusate Sodium 1 Tablet 2 TABLET PO ×2 (06:31→17:48)
[2018-11-01] MEDS: Acetaminophen 500 MG Tablet 1000 MG PO ×3 (06:32→21:25)
[2018-11-01] MEDS: Famotidine 20 MG Tablet 40 MG PO (06:32)
[2018-11-01] MEDS: Capsaicin 0.025% 1 APPLIC Tube TOPICAL ×3 (06:33→21:26)
[2018-11-01] MEDS: Midodrine HCl 5 MG Tablet 2.5 MG PO ×3 (06:34→21:26)
[2018-11-01 06:40] VITALS: BP 106/64; PULSE 60
[2018-11-01] MEDS: Umeclidinium Bromide Inhaler 1 PUFF IH (06:42)
[2018-11-01] MEDS: Fluticasone 0.05% 1 SPRAY NASAL.SRY 2 SPRAY NASAL (06:42)
[2018-11-01 06:51] VITALS: BP 104/64; PULSE 60
[2018-11-01] MEDS: oxyCODONE 5 MG Tablet PO ×2 (08:35→21:23)
[2018-11-01 10:00] VITALS: PULSE 61; RESP 18; O2SAT 94
[2018-11-01 10:22] VITALS: BP 122/85; PULSE 61
[2018-11-01 14:50] VITALS: BP 110/68; PULSE 62; RESP 18; TEMP 36.9; O2SAT 96
[2018-11-01 17:28] VITALS: BP 110/68; PULSE 62
[2018-11-01] MEDS: Metoprolol Tartrate 25 MG Tablet 12.5 MG PO (17:28)
[2018-11-02 05:34] VITALS: BP 106/67; PULSE 76
[2018-11-02] MEDS: Amiodarone 200 MG Tablet PO (05:34)
[2018-11-02] MEDS: Metoprolol Tartrate 25 MG Tablet 12.5 MG PO ×2 (05:34→17:08)
[2018-11-02] MEDS: Fluticasone 0.05% 1 SPRAY NASAL.SRY 2 SPRAY NASAL (05:34)
[2018-11-02] MEDS: Midodrine HCl 5 MG Tablet 2.5 MG PO ×3 (05:35→20:30)
[2018-11-02] MEDS: APIXABAN 5 MG TABLET PO ×2 (05:35→17:08)
[2018-11-02] MEDS: Famotidine 20 MG Tablet 40 MG PO (05:35)
[2018-11-02] MEDS: Sertraline 100 MG Tablet 150 MG PO (05:36)
[2018-11-02] MEDS: buPROPion (XL) 300 MG TABLET.XL PO (05:37)
[2018-11-02] MEDS: Acetaminophen 500 MG Tablet 1000 MG PO ×3 (05:38→20:29)
[2018-11-02] MEDS: Capsaicin 0.025% 1 APPLIC Tube TOPICAL ×3 (05:39→20:31)
[2018-11-02 15:49] VITALS: BP 115/78; PULSE 96; RESP 18; TEMP 36.6; O2SAT 94
[2018-11-02 17:08] VITALS: BP 115/78; PULSE 96
[2018-11-02 20:20] VITALS: BP 104/75; PULSE 75; RESP 16; TEMP 37; O2SAT 93
[2018-11-03] MEDS: buPROPion (XL) 300 MG TABLET.XL PO (05:13)
[2018-11-03] MEDS: Famotidine 20 MG Tablet 40 MG PO (05:13)
[2018-11-03] MEDS: APIXABAN 5 MG TABLET PO ×2 (05:13→17:05)
[2018-11-03] MEDS: Amiodarone 200 MG Tablet PO (05:14)
[2018-11-03] MEDS: Acetaminophen 500 MG Tablet 1000 MG PO ×3 (05:14→21:02)
[2018-11-03 05:17] VITALS: BP 104/57; PULSE 57
[2018-11-03] MEDS: Fluticasone 0.05% 1 SPRAY NASAL.SRY 2 SPRAY NASAL (05:17)
[2018-11-03] MEDS: Sertraline 100 MG Tablet 150 MG PO (05:19)
[2018-11-03] MEDS: Midodrine HCl 5 MG Tablet 2.5 MG PO ×3 (05:19→21:05)
[2018-11-03] MEDS: Capsaicin 0.025% 1 APPLIC Tube TOPICAL ×3 (05:25→20:59)
--- NOTE | 2018-11-03 08:56 | NURSING ---
Pt refused PAMELA alvarez.
--- NOTE | 2018-11-03 09:49 | CASEMGMT ---
Social Work BIMS and PHQ-9 completed for MDS assessment. Shirin Cervantes, SENIOR ANALYST AIRLINE DISPATCHER
[2018-11-03 10:00] VITALS: PULSE 58; RESP 18; O2SAT 97
[2018-11-03 11:24] VITALS: BP 116/74; PULSE 58
[2018-11-03 14:07] VITALS: BP 118/72
[2018-11-03 16:00] VITALS: BP 121/77; PULSE 56; RESP 16; TEMP 36.7; O2SAT 97
[2018-11-03 17:06] VITALS: BP 121/77; PULSE 56
--- NOTE | 2018-11-03 17:15 | NURSING ---
Scheduled Lopressor held d/t parameters to hold if HR is <60. BP 121/77, HR 56. Reported to Val BERRY.
[2018-11-04] MEDS: APIXABAN 5 MG TABLET PO (07:01)
[2018-11-04] MEDS: Famotidine 20 MG Tablet 40 MG PO (07:01)
[2018-11-04 07:02] VITALS: BP 141/83; PULSE 57
[2018-11-04] MEDS: Acetaminophen 500 MG Tablet 1000 MG PO (07:02)
[2018-11-04] MEDS: Sertraline 100 MG Tablet 150 MG PO (07:03)
[2018-11-04] MEDS: buPROPion (XL) 300 MG TABLET.XL PO (07:03)
[2018-11-04] MEDS: Midodrine HCl 5 MG Tablet 2.5 MG PO (07:04)
[2018-11-04] MEDS: Amiodarone 200 MG Tablet PO (07:04)
[2018-11-04] MEDS: Capsaicin 0.025% 1 APPLIC Tube TOPICAL (07:06)
[2018-11-04 08:42] VITALS: BP 92/58; PULSE 55; RESP 18; TEMP 36.7; O2SAT 93
== END 2018-11-04 08:30 | disposition home health service (06) | DRG 559 ==
PROVIDERS: Admitting Provider Family Medicine Geriatric Medicine; Referring Provider Family Medicine Geriatric Medicine; Visit Provider Family Medicine Geriatric Medicine
DX: M48.46XD Fatigue fracture of vertebra, lumbar region, subsequent encounter for fracture with routine healing (principal); E43 Unspecified severe protein-calorie malnutrition; I50.22 Chronic systolic (congestive) heart failure; J96.11 Chronic respiratory failure with hypoxia; K21.9 Gastro-esophageal reflux disease without esophagitis; Z23 Encounter for immunization; I95.1 Orthostatic hypotension; S42.031D Displaced fracture of lateral end of right clavicle, subsequent encounter for fracture with routine healing; X58.XXXD Exposure to other specified factors, subsequent encounter; I11.0 Hypertensive heart disease with heart failure; J44.9 Chronic obstructive pulmonary disease, unspecified; F32.9 Major depressive disorder, single episode, unspecified; F41.9 Anxiety disorder, unspecified; I25.10 Atherosclerotic heart disease of native coronary artery without angina pectoris; I48.0 Paroxysmal atrial fibrillation; G89.29 Other chronic pain; F17.210 Nicotine dependence, cigarettes, uncomplicated; Z68.20 Body mass index [BMI] 20.0-20.9, adult
CPT/HCPCS: 36415; 80048; 85025; 97110; 97116; 97163; 97166; 97530; 97535; 97802; 90670